=== PATIENT | female | born 1945 | race Caucasian/White ===

== ENCOUNTER → 2017-08-24 | Outpatient (CLI) | payer MEDICARE, OTHER ==
[2017-08-24 16:18] LABS: HEMATOCRIT 30.5 % (36.0-47.0); HEMOGLOBIN 10.7 g/dL (12.0-15.5); HGB HCT DIFFERENCE 1.6; MEAN CORPUSCULAR HEMOGLOBIN 29.4 pg (27.0-33.4); MEAN CORPUSCULAR HGB CONC 35.2 g/dL (32.0-36.0); MEAN CORPUSCULAR VOLUME 84 fl (80-97); RED BLOOD COUNT 3.65 10^6/uL (3.72-5.28); RED CELL DISTRIBUTION WIDTH 13.7 % (11.5-14.0); WHITE BLOOD COUNT 7.9 10^3/uL (4.0-10.5)
[2017-08-24 16:23] LABS: APPEARANCE,URINE CLOUDY; BILIRUBIN,URINE NEGATIVE (NEGATIVE); GLUCOSE, URINE NEGATIVE (NEGATIVE); KETONES,URINE NEGATIVE (NEGATIVE); LEUKOCYTE ESTERASE,URINE MODERATE (NEGATIVE); NITRITE,URINE NEGATIVE (NEGATIVE); PROTEIN,URINE 30 mg/dL (NEGATIVE); UROBILINOGEN,URINE NEGATIVE mg/dL (<2.0)
[2017-08-24 16:32] LABS: ANION GAP 15 (5-19); BLOOD UREA NITROGEN 33 mg/dL (7-20); CALCIUM 9.9 mg/dL (8.4-10.2); CARBON DIOXIDE 22 mmol/L (22-30); CHLORIDE 100 mmol/L (98-107); GLUCOSE 82 mg/dL (75-110); POTASSIUM 5.5 mmol/L (3.6-5.0); SODIUM 136.6 mmol/L (137-145)
[2017-08-24 16:35] LABS: URINE CREATININE 90.3 mg/dL (15-278); URINE PROTEIN 40.7 mg/dL (<12)
== END ==
LOC: OD 14:50
PROVIDERS: ATTEND Physician Assistant Medical
DX: I12.9 Hypertensive chronic kidney disease with stage 1 through stage 4 chronic kidney disease, or unspecified chronic kidney disease (principal); N18.3 Chronic kidney disease, stage 3 (moderate)
CPT/HCPCS: 36415; 80048; 81001; 82570; 84156; 85027

== ENCOUNTER → 2017-08-29 | Outpatient (CLI) | payer MEDICARE, OTHER | LOC: OD 10:27 | PROVIDERS: ATTEND Internal Medicine Nephrology | DX: E87.5 Hyperkalemia (principal) | CPT/HCPCS: 36415; 84132 ==

== ENCOUNTER → 2018-05-22 | Outpatient (CLI) | payer MEDICARE, OTHER ==
[2018-05-22 16:31] LABS: HEMATOCRIT 28.9 % (36.0-47.0); HEMOGLOBIN 10.2 g/dL (12.0-15.5); MEAN CORPUSCULAR HEMOGLOBIN 29.2 pg (27.0-33.4); MEAN CORPUSCULAR HGB CONC 35.3 g/dL (32.0-36.0); MEAN CORPUSCULAR VOLUME 83 fl (80-97); PLATELET COUNT 244 10^3/uL (150-450); RED CELL DISTRIBUTION WIDTH 15.1 % (11.5-14.0); WHITE BLOOD COUNT 6.4 10^3/uL (4.0-10.5)
[2018-05-22 16:52] LABS: ANION GAP 16 (5-19); BLOOD UREA NITROGEN 30 mg/dL (7-20); CALCIUM 9.6 mg/dL (8.4-10.2); CARBON DIOXIDE 20 mmol/L (22-30); CHLORIDE 104 mmol/L (98-107); GLUCOSE 88 mg/dL (75-110); IRON(TIBC) 51.5 ug/dL (37-170); POTASSIUM 4.8 mmol/L (3.6-5.0); SODIUM 140.3 mmol/L (137-145)
== END ==
LOC: OD 15:59
PROVIDERS: ATTEND Internal Medicine Nephrology
DX: I12.9 Hypertensive chronic kidney disease with stage 1 through stage 4 chronic kidney disease, or unspecified chronic kidney disease (principal); N18.3 Chronic kidney disease, stage 3 (moderate); R80.9 Proteinuria, unspecified; D64.9 Anemia, unspecified
CPT/HCPCS: 36415; 80048; 82728; 83540; 83550; 83970; 84100; 84165; 84443; 85027

== ENCOUNTER 2018-06-21 11:01 | Observation (INO) | payer MEDICARE, OTHER ==
--- NOTE | 2018-06-21 11:26 | ER Document Report ---
ED General - General Chief Complaint: Dizziness Stated Complaint: DIZZINESS Time Seen by Provider: 06/21/18 11:25 Notes: 72-year-old female to emergency department for evaluation of not feeling well. Apparently she was altered according to neighbors. Patient denies any symptoms. States she just does not feel like eating. Has a history of brain cancer. That was approximately 5 years ago. Denies any headache, chest pain, shortness of breath. Just does not feel like she has any energy. Does not really want to be here. Thinks that the neighbor is "crazy". TRAVEL OUTSIDE OF THE [place] IN LAST 30 DAYS: No - Related Data Allergies/Adverse Reactions: ibuprofen [Ibuprofen] Allergy (Mild, Verified 07/04/17 18:44) Past Medical History - General Information source: Patient - Social History Smoking Status: Current Some Day Smoker Frequency of alcohol use: None Drug Abuse: None Lives with: Alone Family History: Reviewed & Not Pertinent - Past Medical History Cardiac Medical History: Reports: Hx Heart Attack, Hx Hypercholesterolemia Endocrine Medical History: Reports: Hx Diabetes Mellitus Type 2 Renal/ Medical History: Denies: Hx Peritoneal Dialysis - Immunizations Hx Diphtheria, Pertussis, Tetanus Vaccination: Yes Review of Systems - Review of Systems Notes: Constitutional: denies: Chills, Diaphoresis, Fever, Malaise, Weakness EENT: denies: Eye discharge, Blurred vision, Tearing, Double vision, Nose congestion, Nose discharge, Throat swelling, Mouth pain Cardiovascular: denies: Palpitations, Heart racing, Orthopnea, Dyspnea, Chest pain Respiratory: denies: Cough, Hurts to breathe, Wheezing, Shortness of breath Gastrointestinal: denies: Abdominal pain, Diarrhea, Nausea, Vomiting, Black stools, bright red blood in stool Genitourinary: denies: Burning, Dysuria, Discharge, Frequency, Flank pain, Hematuria Musculoskeletal: denies: Joint pain, Joint swelling, Muscle pain, Muscle stiffness, back pain Hematologic/Lymphatic: denies: Anemia, Easy bleeding, Easy bruising, Blood clots Neurological/Psychological: denies: Confusion, Dementia, Depression, Loss of consciousness Skin: No lesions, no masses, no skin breakdown, no abscesses Physical Exam - Vital signs Vitals: Temp Pulse Ox 98.3 F 98 06/21/18 11:07 06/21/18 11:07 Interpretation: Normal - General General appearance: Appears well, Alert - HEENT Head: Normocephalic, Atraumatic Eyes: Normal Pupils: PERRL - Respiratory Respiratory status: No respiratory distress Chest status: Nontender Breath sounds: Normal Chest palpation: Normal - Cardiovascular Rhythm: Regular Heart sounds: Normal auscultation Murmur: No - Abdominal Inspection: Normal Distension: No distension Bowel sounds: Normal Tenderness: Nontender Organomegaly: No organomegaly - Back Back: Normal, Nontender - Extremities General upper extremity: Normal inspection, Nontender, Normal color, Normal ROM , Normal temperature General lower extremity: Normal inspection, Nontender, Normal color, Normal ROM , Normal temperature, Normal weight bearing. No: Meka's sign - Neurological Neuro grossly intact: Yes Cognition: Normal Orientation: AAOx4 [place] Coma Scale Eye Opening: Spontaneous [place] Coma Scale Verbal: Oriented [place] Coma Scale Motor: Obeys Commands [place] Coma Scale Total: 15 Speech: Normal Motor strength normal: LUE, RUE, LLE, RLE Sensory: Normal - Psychological Associated symptoms: Normal affect, Normal mood - Skin Skin Temperature: Warm Skin Moisture: Dry Skin Color: Normal Course - Vital Signs Vital signs: Temp Pulse Resp BP Pulse Ox 98.3 F 68 16 151/93 H 98 06/21/18 11:07 06/21/18 12:00 06/21/18 12:00 06/21/18 12:00 06/21/18 12:00 06/21/18 13:27 Laboratory 06/21/18 06/21/18 06/21/18 11:10 11:10 11:10 WBC 8.0 RBC 4.04 Hgb 11.6 L Hct 33.1 L MCV 82 MCH 28.6 MCHC 34.9 RDW 14.8 H Plt Count 300 Seg Neutrophils % 76.5 Lymphocytes % 12.0 L Monocytes % 9.1 Eosinophils % 1.6 Basophils % 0.8 Absolute Neutrophils 6.1 Absolute Lymphocytes 1.0 Absolute Monocytes 0.7 Absolute Eosinophils 0.1 Absolute Basophils 0.1 Sodium 126.7 L Potassium 4.5 Chloride 92 L Carbon Dioxide 22 Anion Gap 13 BUN 37 H Creatinine 2.36 H Est GFR ( Amer) 25 L Est GFR (Non-Af Amer) 20 L Glucose 101 Calcium 9.3 Total Bilirubin 0.4 Direct Bilirubin 0.3 Neonat Total Bilirubin Not Reportable Neonat Direct Bilirubin Not Reportable Neonat Indirect Bili Not Reportable AST 40 H ALT 9 Alkaline Phosphatase 61 Creatine Kinase 41 CK-MB (CK-2) 0.69 Troponin I 0.034 Total Protein 7.[address] 06/21/18 11:26 IMPRESSION: No acute findings EVIDENCE OF ACUTE STROKE: NO. Patient has hyponatremia with a sodium count of 126. Slightly altered. At this time feel uncomfortable discharging. Giving fluid at this time. Will have hospitalist admit. - Laboratory Result Diagrams: 06/21/18 11:10 06/21/18 11:10 Laboratory results interpreted by me: 06/21/18 06/21/18 11:10 11:10 Hgb 11.6 L Hct 33.1 L RDW 14.8 H Lymphocytes % 12.0 L Sodium 126.7 L Chloride 92 L BUN 37 H Creatinine 2.36 H Est GFR ( Amer) 25 L Est GFR (Non-Af Amer) 20 L AST 40 H - EKG Interpretation by Me EKG shows normal: Sinus rhythm, [place], Intervals, QRS Complexes. abnormal: ST-T Waves - Has biphasic T-wave in lead V2 and has inverted T-wave in aVL Discharge - Discharge Clinical Impression: Hyponatremia Chronic renal failure Qualifiers: Chronic kidney disease stage: unspecified stage Qualified Code(s): N18.9 - Chronic kidney disease, unspecified Condition: Good Disposition: ADMITTED OBSERVATION Admitting Provider: Dea Knowles Unit Admitted: Telemetry Referrals: Khalif KEYES MD [ACTIVE STAFF] - Follow up as needed
[2018-06-21 11:46] LABS: ABSOLUTE BASOPHILS # (AUTO) 0.1 10^3/uL (0.0-0.2); ABSOLUTE EOSINOPHILS # (AUTO) 0.1 10^3/uL (0.0-0.6); ABSOLUTE MONOCYTES (AUTO) 0.7 10^3/uL (0.1-1.4); ABSOLUTE NEUT (AUTO) 6.1 10^3/uL (1.7-8.2); BASOPHILS % (AUTO) 0.8 % (0-2); EOSINOPHILS % (AUTO) 1.6 % (0-6); HEMATOCRIT 33.1 % (36.0-47.0); HEMOGLOBIN 11.6 g/dL (12.0-15.5); MEAN CORPUSCULAR HEMOGLOBIN 28.6 pg (27.0-33.4); MEAN CORPUSCULAR HGB CONC 34.9 g/dL (32.0-36.0); MEAN CORPUSCULAR VOLUME 82 fl (80-97); MONOCYTES % (AUTO) 9.1 % (3-13); PLATELET COUNT 300 10^3/uL (150-450); RED BLOOD COUNT 4.04 10^6/uL (3.72-5.28); RED CELL DISTRIBUTION WIDTH 14.8 % (11.5-14.0); SEGMENTED NEUTROPHILS % (AUTO) 76.5 % (42-78); TOTAL CELLS COUNTED % (AUTO) 100 %
[2018-06-21 12:07] LABS: ALANINE AMINOTRANSFERASE 9 U/L (9-52); ALBUMIN 3.8 g/dL (3.5-5.0); ALKALINE PHOSPHATASE 61 U/L (38-126); ANION GAP 13 (5-19); ASPARTATE AMINO TRANSFERASE 40 U/L (14-36); BILIRUBIN,DIRECT 0.3 mg/dL (0.0-0.4); BILIRUBIN,TOTAL 0.4 mg/dL (0.2-1.3); BLOOD UREA NITROGEN 37 mg/dL (7-20); CALCIUM 9.3 mg/dL (8.4-10.2); CARBON DIOXIDE 22 mmol/L (22-30); CHLORIDE 92 mmol/L (98-107); CREATINE KINASE 41 U/L (30-135); GLUCOSE 101 mg/dL (75-110); POTASSIUM 4.5 mmol/L (3.6-5.0); SODIUM 126.7 mmol/L (137-145); TOTAL PROTEIN 7.2 g/dL (6.3-8.2)
--- NOTE | 2018-06-21 12:16 | RADIOLOGY REPORT (SQ) ---
EXAM DESCRIPTION: CT HEAD WITHOUT COMPLETED DATE/TIME: 06/21/2018 11:41 am REASON FOR STUDY: altered mental status COMPARISON: CT brain 07/04/2017, 08/26/2012 TECHNIQUE: Axial images acquired through the brain without intravenous contrast. Images reviewed wi th bone, brain and subdural windows. Additional sagittal and coronal reconstructions were generated. Images stored on PACS. All CT scanners at this facility use dose modulation, iterative reconstruction, and/or weight based d osing when appropriate to reduce radiation dose to as low as reasonably achievable (ALARA). [facility]: Dose Right [facility]: CareDose [facility]: Dose Right [facility]: Teradose 4D [facility]: [facility] RADIATION DOSE: CT Rad equipment meets quality standard of care and radiation dose reduction techniq ues were employed. CTDIvol: 53.2 mGy. DLP: 1017 mGy-cm. mGy. LIMITATIONS: None. FINDINGS: VENTRICLES: Normal size and contour. CEREBRUM: No CT evidence of acute large territory ischemic change, acute intracranial hemorrhage, mas s effect, or midline shift. Minimal age-appropriate small vessel ischemic change in the bifrontal and biparietal regions. CEREBELLUM: No masses. No hemorrhage. No alteration of density. No evidence for acute infarction. EXTRAAXIAL SPACES: No fluid collections. No masses. ORBITS AND GLOBE: No intra- or extraconal masses. Normal contour of globe without masses. CALVARIUM: No fracture. PARANASAL SINUSES: No fluid or mucosal thickening. SOFT TISSUES: No mass or hematoma. OTHER: No other significant finding. IMPRESSION: No acute findings EVIDENCE OF ACUTE STROKE: NO. COMMENT: Quality ID # [id number]: Final reports with documentation of one or more dose reduction techniques (e.g., Automated exposure control, adjustment of the mA and/or kV according to patient size, use of iterative reconstruction technique) TECHNICAL DOCUMENTATION: JOB ID: [id number] [employer]- All Rights Reserved Reading location - IP/workstation name: [email or web address]
[2018-06-21 12:32] LABS: CREATINE KINASE MB 0.69 ng/mL (<4.55)
[2018-06-21 12:34] LABS: TROPONIN I 0.034 ng/mL
--- NOTE | 2018-06-21 12:40 | EKG REPORT ---
SEVERITY:- ABNORMAL ECG - SINUS RHYTHM ABNORMAL T, CONSIDER ISCHEMIA, LATERAL LEADS BORDERLINE PROLONGED QT INTERVAL : Confirmed by: Brannon Cook MD 21-Jun-2018 12:39:15
[2018-06-21] MEDS ORDERED: NORMAL SALINE 1000 ML 1,000 ML IV ONE (13:00)
[2018-06-21] MEDS ORDERED: AMLODIPINE BESYLATE 5 MG TABLET PO SCH ×2 (14:30→17:12)
--- NOTE | 2018-06-21 14:38 | PDOC H&P ---
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 History is obtained from the patient and the family. Per patient's son, patient was noted to be confused in the past 2 days. She lives alone. When the son checked on her the other day and yesterday, he noticed that the patient has been more confused and was not making sense. Patient denies any fever or chills. No headache or dizziness. She does say she has been having poor oral intake because her mother has been chronically dry. Denies weight loss. She does say she has been having loose nonbloody stools in the past 3 days. She denies abdominal pain. No chest pain or shortness of breath. No nausea vomiting. Patient lives alone and reportedly is able to take care of herself. Reviewed her medication bottles. It appears that she is on hydrochlorothiazide, amlodipine, metoprolol, gabapentin, sertraline and atorvastatin. Patient says that she does not take some of them but she is not sure which she is taking consistently. Past Medical History Cardiac Medical History: Reports: Myocardial Infarction, Hyperlipidema Endocrine Medical History: Reports: Diabetes Mellitus Type 2 Social History Lives with: Alone Smoking Status: Current Some Day Smoker Family History Family History: Reviewed & Not Pertinent Parental Family History Reviewed: Yes - no hx of cancer Children Family History Reviewed: No Sibling(s) Family History Reviewed.: No Medication/Allergy Home Medications: Paroxetine HCl [Paxil 20 mg Tablet] 40 mg PO DAILY 11/14/12 Allergies/Adverse Reactions: ibuprofen [Ibuprofen] Allergy (Mild, Verified 07/04/17 18:44) Review of Systems All systems: reviewed and no additional remarkable complaints except as stated - As mentioned in HPI Physical Exam Vital Signs: Temp Pulse Resp BP Pulse Ox 98.3 F 68 16 151/93 H 98 06/21/18 11:07 06/21/18 12:00 06/21/18 12:00 06/21/18 12:00 06/21/18 12:00 General appearance: PRESENT: no acute distress, well-developed, well-nourished Head exam: PRESENT: atraumatic, normocephalic Eye exam: PRESENT: conjunctiva pink, EOMI, PERRLA. ABSENT: scleral icterus Neck exam: ABSENT: carotid bruit, JVD, lymphadenopathy, thyromegaly Respiratory exam: PRESENT: clear to auscultation deepak. ABSENT: rales, rhonchi, wheezes Cardiovascular exam: PRESENT: RRR. ABSENT: rubs Pulses: PRESENT: normal dorsalis pedis pul Vascular exam: PRESENT: normal capillary refill GI/Abdominal exam: PRESENT: normal bowel sounds, soft. ABSENT: distended, guarding, mass, organolmegaly, rebound, tenderness Rectal exam: PRESENT: deferred Extremities exam: PRESENT: full ROM. ABSENT: calf tenderness, clubbing, pedal edema Neurological exam: PRESENT: alert, awake, oriented to person, oriented to place , oriented to time, oriented to situation, CN II-XII grossly intact. ABSENT: motor sensory deficit Results Impressions: Head CT 06/21/18 11:26 IMPRESSION: No acute findings EVIDENCE OF ACUTE STROKE: NO. Assessment & Plan - Diagnosis (1) Hyponatremia Is this a current diagnosis for this admission?: Yes Plan: Patient is presenting with acute hyponatremia. Differential diagnosis includes hydrochlorothiazide induced versus dehydration. Patient is also taking SSRI which can also cause hyponatremia. Will check urine and serum osm and urine Na and crea further evaluation. Will continue IV fluids and see if that will correct the hyponatremia. Will repeat sodium later today. (2) Hypertension Is this a current diagnosis for this admission?: Yes Plan: Hold hydrochlorothiazide and metoprolol for now. We will resume amlodipine and continue to monitor patient's blood pressures. (3) CKD (chronic kidney disease) stage 4, GFR 15-29 ml/min Is this a current diagnosis for this admission?: Yes Plan: Patient appears to have CKD 4 based on previous labs. She says she does not see a vp talent management and is unsure why she has chronic kidney disease. Aside from chronic hypertension patient does not have history of diabetes mellitus or comorbidities. (4) Hyperlipidemia Is this a current diagnosis for this admission?: Yes Plan: Continue atorvastatin. - Time Time Spent: 30 to 50 Minutes
[2018-06-21 15:24] LABS: APPEARANCE,URINE CLEAR; BILIRUBIN,URINE NEGATIVE (NEGATIVE); COLOR,URINE STRAW; GLUCOSE, URINE NEGATIVE (NEGATIVE); KETONES,URINE NEGATIVE (NEGATIVE); LEUKOCYTE ESTERASE,URINE SMALL (NEGATIVE); NITRITE,URINE NEGATIVE (NEGATIVE); PROTEIN,URINE 100 mg/dL (NEGATIVE); URINE SPECIFIC GRAVITY 1.004; UROBILINOGEN,URINE NEGATIVE mg/dL (<2.0)
--- NOTE | 2018-06-21 15:33 | RADIOLOGY REPORT (SQ) ---
EXAM DESCRIPTION: CHEST SINGLE VIEW COMPLETED DATE/TIME: 06/21/2018 3:08 pm REASON FOR STUDY: hyponatremia COMPARISON: CHEST FILMS 04/16/2013, 11/14/2012, 06/10/2009 EXAM PARAMETERS: NUMBER OF VIEWS: One view. TECHNIQUE: Single frontal radiographic view of the chest acquired. RADIATION DOSE: NA LIMITATIONS: None. FINDINGS: LUNGS AND PLEURA: No opacities, masses or pneumothorax. No pleural effusion. MEDIASTINUM AND HILAR STRUCTURES: No masses. Contour normal. HEART AND VASCULAR STRUCTURES: Heart normal in size. Normal vasculature. BONES: No acute findings. HARDWARE: None in the chest. OTHER: No other significant finding. IMPRESSION: NO ACUTE RADIOGRAPHIC FINDING IN THE CHEST. TECHNICAL DOCUMENTATION: JOB ID: [id number] [employer]- All Rights Reserved Reading location - IP/workstation name: [email or web address]
[2018-06-21] MEDS: NORMAL SALINE 1000 ML 1,000 ML IV PRN (15:36)
[2018-06-21 15:45] LABS: URINE CREATININE 16.9 mg/dL (15-278)
[2018-06-21] MEDS ORDERED: HYDRALAZINE HCL INJ/PF 20 MG/1 ML SDV IV PRN (17:08)
[2018-06-21] MEDS ORDERED: AMLODIPINE BESYLATE 5 MG TABLET PO ONE (17:11)
[2018-06-21 21:13] LABS: ANION GAP 16 (5-19); BLOOD UREA NITROGEN 32 mg/dL (7-20); CALCIUM 9.3 mg/dL (8.4-10.2); CARBON DIOXIDE 22 mmol/L (22-30); CHLORIDE 94 mmol/L (98-107); GLUCOSE 101 mg/dL (75-110); POTASSIUM 4.2 mmol/L (3.6-5.0); SODIUM 132.1 mmol/L (137-145)
[2018-06-22] MEDS: NORMAL SALINE 1000 ML 1,000 ML IV PRN (05:43)
[2018-06-22 07:22] LABS: ANION GAP 12 (5-19); BLOOD UREA NITROGEN 32 mg/dL (7-20); CARBON DIOXIDE 23 mmol/L (22-30); CHLORIDE 98 mmol/L (98-107); GLUCOSE 86 mg/dL (75-110); POTASSIUM 4.2 mmol/L (3.6-5.0); SODIUM 133.2 mmol/L (137-145)
--- NOTE | 2018-06-22 11:16 | PDOC DISCHARGE SUMMARY ---
General - Admit/Disc Date/PCP Admission Date/Primary Care Provider: 06/21/18 13:43 HUSAM SCOTT PA-C Discharge Date: 06/22/18 - Discharge Diagnosis (1) Hyponatremia Is this a current diagnosis for this admission?: Yes (2) Hypertension Is this a current diagnosis for this admission?: Yes (3) CKD (chronic kidney disease) stage 4, GFR 15-29 ml/min Is this a current diagnosis for this admission?: Yes (4) Hyperlipidemia Is this a current diagnosis for this admission?: Yes - Additional Information Resuscitation Status: Full Code Prescriptions: Amlodipine Besylate [Norvasc 5 mg Tablet] 10 mg PO DAILY 30 Days #30 tablet Lisinopril 10 mg PO DAILY 30 Days #30 tablet Home Medications: Bupropion HCl [Wellbutrin 75 mg Tablet] 75 mg PO DAILY 06/21/18 Ferric Citrate [Auryxia] 210 mg PO Q12 06/21/18 Gabapentin [Neurontin 100 mg Capsule] 100 mg PO Q12 06/21/18 Multivit-Min/Iron/Folic/Lutein [Centrum Silver Women Tablet] 1 each PO DAILY Ropinirole HCl [Requip 0.25 mg Tablet] 0.25 mg PO QHS 06/21/18 Sertraline HCl [Zoloft 50 mg Tablet] 50 mg PO DAILY 06/21/18 Amlodipine Besylate [Norvasc 5 mg Tablet] 10 mg PO DAILY 30 Days #30 tablet Lisinopril 10 mg PO DAILY 30 Days #30 tablet 06/22/18 History of Present Illness History of Present Illness: RAMY RASCON is a 72 year old female with a past medical history of hypertension, 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 History is obtained from the patient and the family. Per patient's son, patient was noted to be confused in the past 2 days. She lives alone. When the son checked on her the other day and yesterday, he noticed that the patient has been more confused and was not making sense. Patient denies any fever or chills. No headache or dizziness. She does say she has been having poor oral intake because her mother has been chronically dry. Denies weight loss. She does say she has been having loose nonbloody stools in the past 3 days. She denies abdominal pain. No chest pain or shortness of breath. No nausea vomiting. Patient lives alone and reportedly is able to take care of herself. Reviewed her medication bottles. It appears that she is on hydrochlorothiazide, amlodipine, metoprolol, gabapentin, sertraline and atorvastatin. Patient says that she does not take some of them but she is not sure which she is taking consistently. Hospital Course Hospital Course: This is a 72-year-old female who was admitted for confusion. Upon admission, patient's confusion has resolved but she was noted to have a sodium of 126. Patient was given IV fluids in the ER. She did report of poor oral intake in the past few days. Serum and urine osmolarity and urine sodium were done for hyponatremia workup. Noted that the patient already received a normal saline bolus prior to testing. However her hyponatremia is severely resoled with IV fluid. Her hyponatremia is likely from a combination of dehydration and hydrochlorothiazide induced hyponatremia. Her blood pressure is in the hospital trended up but this was controlled with amlodipine 10 mg daily and as needed hydralazine. She takes metoprolol, hydralazine and lisinopril at home. She is not sure which she is consistently taking at home. Patient also has excessive supply of gabapentin, Flexeril. She is also on sertraline. Addressed polypharmacy. Adjusted patient's regimen and she will be sent home on a higher dose of amlodipine 10 mg daily and lisinopril 10 mg daily. Will discontinue metoprolol for now. She will continue to follow-up with her PCP for titration of her antihypertensives depending on her subsequent blood pressures. Hydrochlorothiazide will also be discontinued. She can continue gabapentiun 100 mg bid prn. She says she will get rid of the 2 extra bottles of neurontin. On day of discharge, patient is awake and coherent and oriented 3. Physical Exam Vital Signs: Temp Pulse Resp BP Pulse Ox 98.1 F 71 18 147/80 H 100 06/22/18 07:44 06/22/18 07:44 06/22/18 07:44 06/22/18 07:44 06/22/18 07:44 Intake & Output 06/21/18 06/22/18 06/23/18 06:59 06:59 06:59 Intake Total 2100 Balance 2100 Weight 145 lb 11.609 oz General appearance: PRESENT: no acute distress, well-developed, well-nourished Eye exam: PRESENT: conjunctiva pink, EOMI, PERRLA. ABSENT: scleral icterus Mouth exam: PRESENT: moist, tongue midline Neck exam: ABSENT: carotid bruit, JVD, lymphadenopathy, thyromegaly Respiratory exam: PRESENT: clear to auscultation deepak. ABSENT: rales, rhonchi, wheezes Pulses: PRESENT: normal dorsalis pedis pul GI/Abdominal exam: PRESENT: normal bowel sounds, soft. ABSENT: distended, guarding, mass, organolmegaly, rebound, tenderness Rectal exam: PRESENT: deferred Extremities exam: PRESENT: full ROM. ABSENT: calf tenderness, clubbing, pedal edema Neurological exam: PRESENT: alert, awake, oriented to person, oriented to place , oriented to time, oriented to situation, CN II-XII grossly intact. ABSENT: motor sensory deficit Results Laboratory Results: 06/22/18 05:57 06/21/18 06/21/18 06/21/18 15:00 15:00 15:00 Sodium Potassium Chloride Carbon Dioxide Anion Gap BUN Creatinine Est GFR ( Amer) Est GFR (Non-Af Amer) Glucose Serum Osmolality 273 L Calcium Urine Color STRAW Urine Appearance CLEAR Urine pH 7.0 Ur Specific [place] 1.004 Urine Protein 100 H Urine Glucose (UA) NEGATIVE Urine Ketones NEGATIVE Urine Blood SMALL H Urine Nitrite NEGATIVE Ur Leukocyte Esterase SMALL H Urine WBC (Auto) 7 Urine Osmolality 212 L 06/21/18 06/21/18 06/22/18 19:50 20:44 05:57 Sodium Cancelled 132.1 L 133.2 L Potassium Cancelled 4.2 4.2 Chloride Cancelled 94 L 98 Carbon Dioxide Cancelled 22 23 Anion Gap Cancelled 16 12 BUN Cancelled 32 H 32 H Creatinine Cancelled 2.06 H 1.99 H Est GFR ( Amer) Cancelled 29 L 30 L Est GFR (Non-Af Amer) Cancelled 24 L 25 L Glucose Cancelled 101 86 Serum Osmolality Calcium Cancelled 9.3 9.0 Urine Color Urine Appearance Urine pH Ur Specific [place] Urine Protein Urine Glucose (UA) Urine Ketones Urine Blood Urine Nitrite Ur Leukocyte Esterase Urine WBC (Auto) Urine Osmolality Impressions: Chest X-Ray 06/21/18 00:00 IMPRESSION: NO ACUTE RADIOGRAPHIC FINDING IN THE CHEST. Head CT 06/21/18 11:26 IMPRESSION: No acute findings EVIDENCE OF ACUTE STROKE: NO. Qualifiers - * PATIENT BEING DISCHARGED WITH ANY OF THE FOLLOWING DIAGNOSIS: No
[2018-06-22 12:54] VITALS: BP 153/83
== END 2018-06-22 13:26 | disposition home health service (06) ==
LOC: ER 11:01 → EH 13:43 → 4S 22:43
PROVIDERS: ADMIT Internal Medicine; ATTEND Internal Medicine
DX: E87.1 Hypo-osmolality and hyponatremia (principal); I12.9 Hypertensive chronic kidney disease with stage 1 through stage 4 chronic kidney disease, or unspecified chronic kidney disease; N18.4 Chronic kidney disease, stage 4 (severe); E78.5 Hyperlipidemia, unspecified; F17.200 Nicotine dependence, unspecified, uncomplicated; R94.31 Abnormal electrocardiogram [ECG] [EKG]; I25.2 Old myocardial infarction; Z60.2 Problems related to living alone; Z79.899 Other long term (current) drug therapy; Z85.89 Personal history of malignant neoplasm of other organs and systems; Z92.21 Personal history of antineoplastic chemotherapy; Z92.3 Personal history of irradiation
CPT/HCPCS: 93005; 99285; 96361; 96374; 36415 ×2; 82553; 82550; 83930; 84443; 82570; 83935; 84300; 85025; 80048 ×2; 80053; 81001; 84484; 71045; 70450; 93010; G0378 ×3; J0360; A9270 ×2; J7030 ×2

== ENCOUNTER 2018-07-11 22:01 | Emergency (ER) | payer MEDICARE, OTHER ==
--- NOTE | 2018-07-11 22:29 | RADIOLOGY REPORT (SQ) ---
PROCEDURE: CT OF THE HEAD WITHOUT INTRAVENOUS CONTRAST HISTORY: stroke alert Indication: Same as above Comparison: 07/04/2017 Technique: CT of the head was done without intravenous contrast was done in the orthogonal planes. This exam was performed according to our departmental dose-optimization program, which includes automated exposure control, adjustment of the mA and/or KV according to the patient's size and/or use of iterative reconstruction technique. FINDINGS: There is no midline shift mass effect or acute focal infarct. 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 There is no supratentorial no transtentorial herniation There is prominence of the sylvian fissures and the cortical sulci reflecting age related volume loss. There is periventricular and deep white matter low attenuation, most likely related to small vessel white matter ischemic disease. If clinical concern exists regarding an acute ischemic/vascular pathology being responsible for patient's symptomatology, an MRI of the brain is more sensitive than the current study, in ruling out such a possibility. There is good triplett/white matter differentiation. The ventricular system is normal. The mastoid air cells are unremarkable . The paranasal sinuses are unremarkable . There is no visualization of acute fractures involving the calvarium or the skull base. The findings were discussed with Dr. 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
--- NOTE | 2018-07-11 22:47 | RADIOLOGY REPORT (SQ) ---
EXAM DESCRIPTION: XR CHEST 1 VIEW COMPLETED DATE/TME: 07/11/2018 22:03 CLINICAL HISTORY: 72 years Female, stroke alert COMPARISON: None. NUMBER OF VIEWS/TECHNIQUE: 1/AP FINDINGS: Adequate lung volume, clear parenchyma, normal cardiac silhouette, atherosclerosis, and intact bony thorax. Calcification of contrast artifact at the left lateral thorax. IMPRESSION: No acute cardiopulmonary findings.
--- NOTE | 2018-07-11 22:57 | RADIOLOGY REPORT (SQ) ---
EXAM DESCRIPTION: CT NECK ANGIOGRAPHY WITHOUT THEN WITH IV CONTRAST COMPLETED DATE/TME: 07/11/2018 00:00 CLINICAL HISTORY: 72 years Female, STROKE SX Comparison: CT, head, same day Technique: IV contrast. Coronal and sagittal reformat not available. 3d reconstruction. This exam was performed according to our departmental dose-optimization program, which includes automated exposure control, adjustment of the mA and/or kV according to patient size and/or use of iterative reconstruction technique. [facility]: Dose Right [facility]: CareDose [facility]: Dose Right [facility]: Teradose 4D [facility]: [employer] LIMITATIONS: None Findings: CTA, head: Intact [place]. No aneurysm. No occlusion. No vasculitides. Atherosclerosis includes scattered plaque. CTA, neck: 50% focal diameter stenosis of the proximal left vertebral artery due to kinking, image 34 series 3. Intact carotid and right vertebral arterial system. No internal carotid arterial stenosis/occlusion based on NASCET (or similar) criteria. Atherosclerosis includes scattered plaque. Other: Abnormal CT of the brain reported separately. No enhancement abnormality of the brain. Impression: 50% focal diameter stenosis of the proximal left vertebral artery due to kinking, image 34 series 3. No acute CTA findings of the head or neck.
[2018-07-11 23:00] LABS: INTERNATIONAL RATION (INR) 0.98
[2018-07-11 23:01] LABS: PARTIAL THROMBOPLASTIN TIME 28.6 SEC (23.5-35.8)
[2018-07-11 23:04] LABS: ABSOLUTE BASOPHILS # (AUTO) 0.1 10^3/uL (0.0-0.2); ABSOLUTE EOSINOPHILS # (AUTO) 0.2 10^3/uL (0.0-0.6); ABSOLUTE MONOCYTES (AUTO) 0.6 10^3/uL (0.1-1.4); HEMOGLOBIN 9.6 g/dL (12.0-15.5); MONOCYTES % (AUTO) 7.9 % (3-13); PLATELET COUNT 217 10^3/uL (150-450); TOTAL CELLS COUNTED % (AUTO) 100 %
[2018-07-11 23:08] LABS: PROTHROMBIN TIME 13.5 SEC (11.4-15.4)
[2018-07-11 23:09] LABS: ABSOLUTE LYMPHOCYTES (AUTO) 0.8 10^3/uL (0.5-4.7); ABSOLUTE NEUT (AUTO) 6.1 10^3/uL (1.7-8.2); BASOPHILS % (AUTO) 1.3 % (0-2); EOSINOPHILS % (AUTO) 2.3 % (0-6); HEMATOCRIT 28.3 % (36.0-47.0); LYMPHOCYTES % (AUTO) 10.7 % (13-45); MEAN CORPUSCULAR VOLUME 85 fl (80-97); RED BLOOD COUNT 3.32 10^6/uL (3.72-5.28); RED CELL DISTRIBUTION WIDTH 15.5 % (11.5-14.0); SEGMENTED NEUTROPHILS % (AUTO) 77.8 % (42-78); WHITE BLOOD COUNT 7.9 10^3/uL (4.0-10.5)
[2018-07-11] MEDS ORDERED: NICARDIPINE HCL RTU, ISO-OS 20 MG/200 ML RTUINJ IV PRN (23:10)
--- NOTE | 2018-07-11 23:21 | ER Document Report ---
ED General - General Chief Complaint: Weakness Stated Complaint: WEAKNESS Time Seen by Provider: 07/11/18 22:18 TRAVEL OUTSIDE OF THE [place] IN LAST 30 DAYS: No - HPI Notes: Patient is a 72-year-old female that presents to the emergency department for chief complaint of left arm and leg weakness. Patient presents emergency room complaining of left arm and leg weakness. Her symptoms started at 1030 this morning. She also states she feels she is slurring her speech. Her symptoms are unchanged since onset. She denies any aggravating or relieving factors. She denies history of stroke, head injury or intracranial hemorrhage in the past. She denies any anticoagulation. EMS states she had a difficult time ambulating because her leg seemed weak. Past Medical History: Hypertension, hyperlipidemia Past Surgical History: Denies Social History: Daily tobacco, denies alcohol and drug use Family History: Reviewed and noncontributory for presenting illness Allergies: Reviewed, see documented allergy list. REVIEW OF SYSTEMS: CONSTITUTIONAL : No fever No chills No diaphoresis No recent illness EENT: No vision changes No congestion No sore throat CARDIOVASCULAR: No chest pain No palpitations No shortness of breath RESPIRATORY: No shortness of breath No cough No difficulty breathing GASTROINTESTINAL: No abdominal pain No nausea No vomiting No diarrhea GENITOURINARY: No dysuria No hematuria No difficulty urinating MUSCULOSKELETAL: No back pain No leg pain No arm pain SKIN: No rashes No lesions LYMPHATIC: No swollen, enlarged glands. NEUROLOGICAL: No lightheadedness No headache No left arm and leg weakness No paresthesias Slurred speech PSYCHIATRIC: No anxiety No depression PHYSICAL EXAMINATION: Vital signs reviewed, nursing noted reviewed. GENERAL: Well-appearing, well-nourished and in no acute distress. HEAD: Atraumatic, normocephalic. EYES: Eyes appear normal, extraocular movements intact, sclera anicteric, conjunctiva are normal. ENT: nares patent, oropharynx clear without exudates. Moist mucous membranes. NECK: Normal range of motion, supple without lymphadenopathy LUNGS: Breath sounds clear to auscultation bilaterally and equal. No wheezes rales or rhonchi. HEART: Regular rate and rhythm without murmurs ABDOMEN: Soft, nontender, normoactive bowel sounds. No rebound, guarding, or rigidity. No masses appreciated. EXTREMITIES: Nontender, good range of motion, no pitting or edema. NEUROLOGICAL: NIH at 2208=6 (+1 left arm drift, +3 left leg no effort against gravity, +1 dysarthria, +1 right facial palsy). No ataxia. No sensory loss. PSYCH: Normal mood, normal affect. SKIN: Warm, Dry, normal turgor, no rashes or lesions noted on exposed skin - Related Data Allergies/Adverse Reactions: ibuprofen [Ibuprofen] Allergy (Mild, Verified 07/04/17 18:44) Past Medical History - Social History Smoking Status: Current Every Day Smoker Family History: Reviewed & Not Pertinent - Medical History Medical History: Other - Dictated - Past Medical History Cardiac Medical History: Reports: Hx Heart Attack, Hx Hypercholesterolemia, Hx Hypertension Endocrine Medical History: Reports: Hx Diabetes Mellitus Type 2 Renal/ Medical History: Denies: Hx Peritoneal Dialysis - Immunizations Hx Diphtheria, Pertussis, Tetanus Vaccination: Yes Review of Systems - Review of Systems Notes: Dictated Physical Exam - Vital signs Vitals: Pulse Resp BP Pulse Ox 52 L 18 144/78 H 90 L 07/11/18 22:03 07/11/18 22:03 07/11/18 22:03 07/11/18 22:03 Course - Re-evaluation Re-evalutation: 07/11/18 23:21 Patient seen and examined vital signs reviewed. Laboratory data and imaging were ordered as appropriate for the patient's presenting symptoms and complaint, with consideration of any critical or life threatening conditions that may be associated with their obtained history and exam as noted above. Patient was treated with Cardene for hypertension Results were reviewed when available and demonstrated pontine hemorrhage The patient was re-evaluated and was unchanged Evaluation was most consistent with pontine hemorrhage Results were discussed with the patient at this point after careful consideration I feel that that patient should be transferred to [facility] due to intracranial hemorrhage requiring neurosurgery evaluation. Case discussed with physician programs assistant for excepting Dr. Camara. this was discussed with the patient that it is in the best interest for their care to be transferred, the risks and benefits of transfer were discussed, including but not limited to clinical deterioration during transport, respiratory distress, and potential for traumatic injuries. Patient agreed with this plan of care. *Note is created using voice recognition software and may contain spelling, syntax or grammatical errors. 07/11/18 23:23 - Vital Signs Vital signs: Temp Pulse Resp BP Pulse Ox 97.8 F 52 L 17 195/81 H 95 07/11/18 22:04 07/11/18 22:03 07/11/18 23:01 07/11/18 23:01 07/11/18 23:01 - Laboratory Result Diagrams: 07/11/18 22:39 07/11/18 22:39 Laboratory results interpreted by me: 07/11/18 22:39 RBC 3.32 L Hgb 9.6 L Hct 28.3 L RDW 15.5 H Lymphocytes % 10.7 L Critical Care Note - Critical Care Note Total time excluding time spent on procedures (mins): 35 Comments: Critical care time spent obtaining history from patient or surrogate, discussions with consultants, development of treatment plan with patient or surrogate, evaluation of patient's response to treatment, examination of patient , ordering and performing treatments and interventions, ordering and review of laboratory studies, re-evaluation of patient's condition, ordering and review of radiographic studies and review of old charts Discharge - Discharge Clinical Impression: Pontine hemorrhage, Hemorrhagic stroke Condition: Stable Disposition: [facility] Referrals: HUSAM SCOTT PA-C [Primary Care Provider] - Follow up as needed
[2018-07-12 00:43] LABS: ALANINE AMINOTRANSFERASE 26 U/L (9-52); ALBUMIN 4.3 g/dL (3.5-5.0); ALKALINE PHOSPHATASE 88 U/L (38-126); ANION GAP 10 (5-19); ASPARTATE AMINO TRANSFERASE 47 U/L (14-36); BILIRUBIN,DIRECT 0.5 mg/dL (0.0-0.4); BILIRUBIN,TOTAL 0.7 mg/dL (0.2-1.3); BLOOD UREA NITROGEN 31 mg/dL (7-20); CALCIUM 9.6 mg/dL (8.4-10.2); CARBON DIOXIDE 25 mmol/L (22-30); CHLORIDE 100 mmol/L (98-107); GLUCOSE 93 mg/dL (75-110); SODIUM 134.8 mmol/L (137-145); TOTAL PROTEIN 7.5 g/dL (6.3-8.2)
[2018-07-12 01:26] VITALS: BP 171/76
--- NOTE | 2018-07-12 07:41 | EKG REPORT ---
SEVERITY:- ABNORMAL ECG - SINUS RHYTHM TALL R WAVE IN V2, CONSIDER RVH OR PMI NONSPECIFIC ST-T CHANGES LATERAL LEADS : Confirmed by: Brannon Cook MD 12-Jul-2018 07:40:52
--- NOTE | 2018-07-12 08:30 | RADIOLOGY REPORT (SQ) ---
EXAM DESCRIPTION: CTA HEAD COMPLETE DATE/TIME: 07/11/2018 10:28 pm REASON FOR STUDY: STROKE SX FINDINGS: Please see combined report of the CTA neck for performance of procedure and radiologic sup ervision and interpretation. IMPRESSION: Please see combined report of the CTA neck for performance of procedure and radiologic s upervision and interpretation. Reading location - IP/workstation name: [email or web address]
== END 2018-07-12 01:40 | disposition short-term general hospital (02) ==
LOC: ER 22:01
DX: I62.9 Nontraumatic intracranial hemorrhage, unspecified (principal); I10 Essential (primary) hypertension; F17.200 Nicotine dependence, unspecified, uncomplicated
CPT/HCPCS: 93005; 99291; 96365; 36415; 82962; 85025; 85610; 85730; 80053; 84484; 71045; 70450; 70496; 70498; 93010; J3490

== ENCOUNTER 2018-08-05 04:47 | Inpatient (IN) | payer MEDICARE, OTHER ==
--- NOTE | 2018-08-05 05:41 | ER Document Report ---
ED Medical Screen (RME) - General Stated Complaint: FALL/LEG PAIN Time Seen by Provider: 08/05/18 05:10 Mode of Arrival: Ambulatory Information source: Patient Notes: Patient is a 72-year-old female who presents with chief complaint of fall. Patient reports she has fallen multiple times over the last several weeks. Patient complains of left leg pain up near her left hip. Patient was recently transferred to another facility for a brain tumor. Patient denies any complaints other than the left leg/hip pain. Exam: Patient alert and oriented x4 Bruising noted to the left side of patient's face near the advent. Scattered bruises noted on patient's left arm and left hip. I have greeted and performed a rapid initial assessment of this patient. A comprehensive ED assessment and evaluation of the patient, analysis of test results and completion of the medical decision making process will be conducted by additional ED providers. Dictation of this chart was performed using voice recognition software; therefore, there may be some unintended grammatical errors. TRAVEL OUTSIDE OF THE [place] IN LAST 30 DAYS: No - Related Data Allergies/Adverse Reactions: ibuprofen [Ibuprofen] Allergy (Mild, Verified 07/12/18 00:41) Past Medical History - Past Medical History Cardiac Medical History: Reports: Hx Heart Attack, Hx Hypercholesterolemia, Hx Hypertension Endocrine Medical History: Reports: Hx Diabetes Mellitus Type 2 Renal/ Medical History: Denies: Hx Peritoneal Dialysis - Immunizations Hx Diphtheria, Pertussis, Tetanus Vaccination: Yes Doctor's Discharge - Discharge Referrals: HUSAM SCOTT PA-C [Primary Care Provider] - Follow up as needed
--- NOTE | 2018-08-05 05:50 | RADIOLOGY REPORT (SQ) ---
EXAM DESCRIPTION: CT HEAD WITHOUT IV CONTRAST COMPLETED DATE/TME: 08/05/2018 05:19 CLINICAL HISTORY: 72 years, Female, fall COMPARISON: 07/11/2018 TECHNIQUE: Axial CT images of the brain were obtained without contrast. Sagittal and coronal reformats were performed. [facility] 963 Images stored on PACS. All CT scanners at this facility use dose modulation, iterative reconstruction, and/or weight based dosing when appropriate to reduce radiation dose to as low as reasonably achievable (ALARA). [facility]: Dose Right [facility]: CareDose [facility]: Dose Right [facility]: Teradose 4D [facility]: [employer] LIMITATIONS: None. FINDINGS: There is no acute infarct, hemorrhage, mass, edema, hydrocephalus, or extra-axial fluid collection. There is mild diffuse cerebral atrophy with mild periventricular deep white matter chronic microvascular changes. The paranasal sinuses and mastoid air cells are clear. There is no acute fracture IMPRESSION: No acute intracranial abnormality TECHNICAL DOCUMENTATION: Quality ID # 436: Final reports with documentation of one or more dose reduction techniques (e.g., Automated exposure control, adjustment of the mA and/or kV according to patient size, use of iterative reconstruction technique) 2010 [employer]- All Rights Reserved
--- NOTE | 2018-08-05 06:13 | RADIOLOGY REPORT (SQ) ---
EXAM DESCRIPTION: XR HIP 2 OR MORE VIEWS COMPLETED DATE/TME: 08/05/2018 05:20 CLINICAL HISTORY: 72 years Female, left hip pain, thigh pain COMPARISON: None. Findings: Fracture of the left femoral neck with 1.9 cm lateral displacement.. Bones, joints, and soft tissues of the LEFT XR HIP 2 OR MORE VIEWS appear otherwise intact. IMPRESSION: Fracture of the left femoral neck.
[2018-08-05 06:19] LABS: HEMATOCRIT 26.4 % (36.0-47.0); MEAN CORPUSCULAR HEMOGLOBIN 29.1 pg (27.0-33.4); MEAN CORPUSCULAR HGB CONC 34.3 g/dL (32.0-36.0); MEAN CORPUSCULAR VOLUME 85 fl (80-97); PLATELET COUNT 223 10^3/uL (150-450); RED BLOOD COUNT 3.11 10^6/uL (3.72-5.28); RED CELL DISTRIBUTION WIDTH 15.9 % (11.5-14.0); WHITE BLOOD COUNT 16.7 10^3/uL (4.0-10.5)
--- NOTE | 2018-08-05 06:21 | ER Document Report ---
ED Fall - General Mode of Arrival: Ambulatory Information source: Patient TRAVEL OUTSIDE OF THE [place] IN LAST 30 DAYS: No <NICK POLLOCK - Last Filed: 08/05/18 07:38> <RAMIRO RODRIGUEZ - Last Filed: 08/05/18 15:39> - General Chief Complaint: Fall Stated Complaint: FALL/LEG PAIN Time Seen by Provider: 08/05/18 05:10 Notes: 72-year-old female who presents to the emergency department today with complaints of left hip pain. Patient has had frequent falls recently stating that her "legs are weak". Patient states she last had a fall yesterday and has had left leg pain since this fall. Patient's left lower extremity is shortened and externally rotated. Patient has ecchymosis to the left periorbital area, right forehead, and diffusely spread across her extremities. (NICK POLLOCK) - Related data Allergies/Adverse Reactions: ibuprofen [Ibuprofen] Allergy (Mild, Verified 07/12/18 00:41) Past Medical History - General Information source: Patient - Social History Smoking Status: Never Smoker Cigarette use (# per day): No Chew tobacco use (# tins/day): No Frequency of alcohol use: None Drug Abuse: None Lives with: Family Family History: Reviewed & Not Pertinent Patient has suicidal ideation: No Patient has homicidal ideation: No - Past Medical History Cardiac Medical History: Reports: Hx Heart Attack, Hx Hypercholesterolemia, Hx Hypertension Endocrine Medical History: Reports: Hx Diabetes Mellitus Type 2 Surgical Hx: Negative - Immunizations Hx Diphtheria, Pertussis, Tetanus Vaccination: Yes <NICK POLLOCK - Last Filed: 08/05/18 07:38> Review of Systems - Review of Systems Constitutional: No symptoms reported EENT: No symptoms reported Cardiovascular: No symptoms reported Respiratory: No symptoms reported Gastrointestinal: No symptoms reported Genitourinary: No symptoms reported Female Genitourinary: No symptoms reported Musculoskeletal: See HPI, Joint pain - left hip pain Skin: No symptoms reported Hematologic/Lymphatic: No symptoms reported Neurological/Psychological: No symptoms reported -: Yes All other systems reviewed and negative <NICK POLLOCK - Last Filed: 08/05/18 07:38> Physical Exam <NICK POLLOCK - Last Filed: 08/05/18 07:38> <RAMIRO RODRIGUEZ - Last Filed: 08/05/18 15:39> - Vital signs Vitals: Pulse Ox 88 L 08/05/18 04:58 - Notes Notes: Physical Exam: General: Alert, appears uncomfortable. HEENT: Normocephalic. Left periorbital ecchymosis. PERRL. Extraocular movements intact. Oropharynx clear. Neck: Supple. Non-tender. Respiratory: No respiratory distress. Clear and equal breath sounds bilaterally. Cardiovascular: Regular rate and rhythm. Abdominal: Normal Inspection. Non-tender. No distension. Normal Bowel Sounds. Back: Non-tender. No deformity or step off. Extremities: Moves all four extremities. Upper extremities: Ecchymosis. Normal ROM. Lower extremities: Left lower extremity is shortened and externally rotated. Pain with palpation of left hip. Neurological: Normal cognition. AAOx4. Normal speech. Psychological: Normal affect. Normal Mood. Skin: Warm. Dry. Eccymosis across arms/legs. (NICK POLLOCK) Course - Laboratory Result Diagrams: 08/05/18 06:08 08/05/18 06:08 <NICK POLLOCK - Last Filed: 08/05/18 07:38> - Laboratory Result Diagrams: 08/05/18 06:08 08/05/18 13:10 - Diagnostic Test Radiology reviewed: Image reviewed, Reports reviewed - CT scan of the head does not show an acute process. Left hip x-ray shows femoral neck fracture. - EKG Interpretation by Me EKG shows normal: Sinus rhythm, [place], Intervals, QRS Complexes, ST-T Waves Rate: Normal - 79 Rhythm: NSR - Consults Dr. Magallanes Time consulted: 07:20 Consulted provider: will see as inpatient - Request medicine admit the patient Dr. Peterson Time consulted: 07:25 Consulted provider: other - States that Dr. Knowles will see the patient in consult but wants the orthopedic surgeon to admit the patient. This information was relayed to Dr. Magallanes <RAMIRO RODRIGUEZ - Last Filed: 08/05/18 15:39> - Vital Signs Vital signs: Temp Pulse Resp BP Pulse Ox 97.5 F 7 L 123/64 100 08/05/18 09:32 08/05/18 15:01 08/05/18 15:01 08/05/18 15:01 - Laboratory Laboratory results interpreted by me: 10/01/18 10/01/18 10/01/18 06:08 06:08 07:00 WBC 16.7 H RBC 3.11 L Hgb 9.0 L Hct 26.4 L RDW 15.9 H Seg Neuts % (Manual) 95 H Lymphocytes % (Manual) 5 L Monocytes % (Manual) 0 L Abs Neuts (Manual) 15.9 H Abs Monocytes (Manual) 0.0 L Sodium 128.7 L Chloride 95 L BUN 25 H Creatinine 2.25 H Est GFR ( Amer) 26 L Est GFR (Non-Af Amer) 22 L Direct Bilirubin 0.7 H Albumin 3.4 L Urine Osmolality 204 L Discharge <NICK POLLOCK - Last Filed: 08/05/18 07:38> - Discharge Admitting Provider: Hospitalist Unit Admitted: IMCU <RAMIRO RODRIGUEZ - Last Filed: 08/05/18 15:39> - Discharge Clinical Impression: Hyponatremia, CKD (chronic kidney disease) stage 4, GFR 15-29 ml/min Closed left hip fracture Qualifiers: Encounter type: initial encounter Qualified Code(s): S72.002A - Fracture of unspecified part of neck of left femur, initial encounter for closed fracture Condition: Stable Disposition: ADMITTED INPATIENT Scribe Attestation: 08/05/18 09:00 I personally performed the services described in the documentation, reviewed and edited the documentation which was dictated to the scribe in my presence, and it accurately records my words and actions. (RAMIRO RODRIGUEZ) Scribe Documentation - Scribe Written by [employer]:: Rigoberto De La Rosa, 08/05/2018 0743 acting as scribe for :: Jimmy <NICK POLLOCK - Last Filed: 08/05/18 07:38>
[2018-08-05] MEDS ORDERED: MORPHINE SULFATE 10 MG/ML INJ IV ONE ×2 (06:28→09:34)
[2018-08-05] MEDS ORDERED: ONDANSETRON HCL INJ/PF 4 MG/2 ML SDV IV ONE ×2 (06:28→09:34)
[2018-08-05] MEDS ORDERED: NORMAL SALINE 1000 ML 1,000 ML IV ONE (06:29)
[2018-08-05 06:38] LABS: ALANINE AMINOTRANSFERASE 12 U/L (9-52); ALBUMIN 3.4 g/dL (3.5-5.0); ALKALINE PHOSPHATASE 77 U/L (38-126); ANION GAP 10 (5-19); ASPARTATE AMINO TRANSFERASE 20 U/L (14-36); BILIRUBIN,DIRECT 0.7 mg/dL (0.0-0.4); BILIRUBIN,TOTAL 0.8 mg/dL (0.2-1.3); BLOOD UREA NITROGEN 25 mg/dL (7-20); CALCIUM 9.6 mg/dL (8.4-10.2); CARBON DIOXIDE 24 mmol/L (22-30); CHLORIDE 95 mmol/L (98-107); CREATINE KINASE 43 U/L (30-135); GLUCOSE 105 mg/dL (75-110); POTASSIUM 4.8 mmol/L (3.6-5.0); SODIUM 128.7 mmol/L (137-145); TOTAL PROTEIN 6.5 g/dL (6.3-8.2)
[2018-08-05 06:43] LABS: ABSOLUTE LYMPHOCYTES# (MANUAL) 0.8 10^3/uL (0.5-4.7); ABSOLUTE NEUTROPHILS# (MANUAL) 15.9 10^3/uL (1.7-8.2); BASOPHILS % (MANUAL) 0 % (0-2); EOSINOPHILS % (MANUAL) 0 % (0-6); LYMPHOCYTES % (MANUAL) 5 % (13-45); MONOCYTES % (MANUAL) 0 % (3-13); SEGMENTED NEUTROPHILS % (MAN) 95 % (42-78); TOTAL CELLS COUNTED 100
[2018-08-05 06:44] LABS: ANISOCYTOSIS 1+; BURR CELLS 1+; PLATELET COMMENT ADEQUATE; POLYCHROMASIA 1+
[2018-08-05 06:49] LABS: CREATINE KINASE MB 0.6 ng/mL (<4.55); TROPONIN I 0.063 ng/mL
[2018-08-05 07:27] LABS: APPEARANCE,URINE CLOUDY; BILIRUBIN,URINE NEGATIVE (NEGATIVE); COLOR,URINE YELLOW; GLUCOSE, URINE NEGATIVE (NEGATIVE); KETONES,URINE NEGATIVE (NEGATIVE); LEUKOCYTE ESTERASE,URINE NEGATIVE (NEGATIVE); NITRITE,URINE NEGATIVE (NEGATIVE); PROTEIN,URINE NEGATIVE (NEGATIVE); URINE SPECIFIC GRAVITY 1.005; UROBILINOGEN,URINE NEGATIVE mg/dL (<2.0)
--- NOTE | 2018-08-05 07:59 | EKG REPORT ---
SEVERITY:- NORMAL ECG - SINUS RHYTHM : Confirmed by: Thais Gustafson 05-Aug-2018 07:58:01
[2018-08-05] MEDS ORDERED: LORAZEPAM INJ 2 MG/1 ML VIAL IV PRN (11:52)
--- NOTE | 2018-08-05 12:03 | PDOC H&P ---
History of Present Illness Admission Date/PCP: 08/05/18 09:14 HUSAM SCOTT PA-C Patient complains of: fall, left leg weakness History of Present Illness: Ms. 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 Patient was noted to have a left hip fracture in the ER. Hospitalist service was called for admission. Upon encounter, patient reports that she developed leg weakness last night more noticeably on the left leg. She says she fell last night and denies hitting her head and went back to sleep. Around 3 AM this morning, she wok up and went to the bathroom and felt that her left left was still weak. She went to the bathroom and fell again, hit her head and developed pain and tenderness on the left hip. She denies syncope, nausea or vomiting. Initial CT of the head was negative. She had a recent pontine bleed on 07/11/18 and was admitted to [facility] and was subsequently discharged to rehab. She was discharged back home more than a week ago. Past Medical History Cardiac Medical History: Reports: Myocardial Infarction, Hyperlipidema, Hypertension Endocrine Medical History: Reports: Diabetes Mellitus Type 2 Social History Lives with: Family Smoking Status: Never Smoker Drugs: None Family History Family History: Reviewed & Not Pertinent Parental Family History Reviewed: Yes - no premature CAD Children Family History Reviewed: No Sibling(s) Family History Reviewed.: No Medication/Allergy Home Medications: Atorvastatin Calcium [Lipitor 10 mg Tablet] 10 mg PO QHS 08/05/18 Bupropion HCl [Wellbutrin 75 mg Tablet] 75 mg PO DAILY 08/05/18 Cyanocobalamin (Vitamin B-12) [Vitamin B-12 1000 mcg Tablet] 1,000 mcg PO DAILY 08/05/18 Fluoxetine HCl [Prozac 20 mg Capsule] 20 mg PO DAILY 08/05/18 Folic Acid [Folvite 1 mg Tablet] 1 mg PO DAILY 08/05/18 Gabapentin [Neurontin 100 mg Capsule] 100 mg PO BID 08/05/18 Magnesium Oxide [Mag-Ox 400 mg Tablet] 400 mg PO DAILY 08/05/18 Melatonin [Melatonin 3 mg Tablet] 3 mg PO QHS 08/05/18 [place]-3 Fatty Acids/Fish Oil [Fish Oil 1,000 mg Capsule] 1,000 mg PO DAILY 08/05 Ropinirole HCl [Requip 0.25 mg Tablet] 0.25 mg PO QHS 08/05/18 Vitamin B Complex [Vitamin B-100 Complex] 1 tab PO DAILY 08/05/18 Allergies/Adverse Reactions: ibuprofen [Ibuprofen] Allergy (Mild, Verified 07/12/18 00:41) Review of Systems All systems: reviewed and no additional remarkable complaints except as stated - as mentoned HPI Physical Exam Vital Signs: Temp Pulse Resp BP Pulse Ox 97.5 F 112/65 95 08/05/18 09:32 08/05/18 09:01 08/05/18 09:32 Intake & Output 08/04/18 08/05/18 08/06/18 06:59 06:59 06:59 Intake Total 417 Balance 417 Weight 142 lb General appearance: PRESENT: no acute distress, well-developed, well-nourished Head exam: PRESENT: normocephalic, other - note of ecchymoses on the left periorbital area Eye exam: PRESENT: conjunctiva pink, EOMI, PERRLA. ABSENT: scleral icterus Respiratory exam: PRESENT: clear to auscultation deepak. ABSENT: rales, rhonchi, wheezes Cardiovascular exam: PRESENT: RRR. ABSENT: diastolic murmur, rubs, systolic murmur Pulses: PRESENT: normal dorsalis pedis pul GI/Abdominal exam: PRESENT: normal bowel sounds, soft. ABSENT: distended, guarding, mass, organolmegaly, rebound, tenderness Rectal exam: PRESENT: deferred Extremities exam: PRESENT: tenderness - tenderness and swelling on the left hip , left leg externally rotated Neurological exam: PRESENT: alert, awake, oriented to person, oriented to place , oriented to time, oriented to situation, CN II-XII grossly intact, motor sensory deficit - 4/5 motor strength on the left leg, +Babinski reflex on the left foot Psychiatric exam: PRESENT: appropriate affect, normal mood. ABSENT: homicidal ideation, suicidal ideation Results Impressions: Head CT 08/05/18 05:19 IMPRESSION: No acute intracranial abnormality TECHNICAL DOCUMENTATION: Quality ID # 436: Final reports with documentation of one or more dose reduction techniques (e.g., Automated exposure control, adjustment of the mA and/or kV according to patient size, use of iterative reconstruction technique) 2010 [employer]- All Rights Reserved Hip X-Ray 08/05/18 05:20 IMPRESSION: Fracture of the left femoral neck. Assessment & Plan - Diagnosis (1) Acute CVA (cerebrovascular accident) Is this a current diagnosis for this admission?: Yes Plan: Patient complained of new left leg weakness last night. She does have a 4/5 strength on dorsiflexion of the left foot and has a positive Babinski on the left foot. A stat MRI was done which showed an acute right sided pontine infarct. She did have a recent pontine bleed 3 weeks ago which appears to have resolved on repeat imaging. Patient presented beyond the window period for TPA and regardless will not be a candidate for TPA due to recent pontine bleed. Will consult PT/OT and speech therapy. Recommend against proceeding with surgery at this time. Discussed with patient and family in length and they verbalized understanding. This is a highly complex patient who had a recent pontine bleed and a new pontine infarct in the context of a complete left hip fracture. She was not sent on aspirin when she was recently discharged to rehab due to the pontine bleed. Will hold off on aspirin or antiplatelet for now. Recommend VTE prophylaxis with SQ heparin due to significant risk of VTE. Benefits and risks were again discussed with patient and son and they are amenable to plan. (2) Closed left hip fracture Qualifiers: Encounter type: initial encounter Qualified Code(s): S72.002A - Fracture of unspecified part of neck of left femur, initial encounter for closed fracture Is this a current diagnosis for this admission?: Yes Plan: Patient is deemed high risk for surgery at this time due to recent pontine bleed 3 weeks ago and acute/new onset pontine infarct. Discussed recommendation with Dr. Magallanes. (3) Hyponatremia Is this a current diagnosis for this admission?: Yes Plan: Patient has a history of hyponatremia. He was admitted last month for hyponatremia. She had polypharmacy and medications were modified. She was also on HCTZ. HCTZ was also discontinued. She was given IV fluids and her sodium normalized. A work-up for hyponatremi was purused but unfortunately, she was already given IV fluids on previous admission prior to work-up. She was given a liter of NS in the ER earlier. Will check urine studies. Will repeat BMP this afternoon. She does take sertraline which can also cause (albeit lower risk) hyponatremia. - Time Time Spent: 50 to 70 Minutes
--- NOTE | 2018-08-05 13:12 | RADIOLOGY REPORT (SQ) ---
EXAM DESCRIPTION: MRI HEAD WITHOUT COMPLETED DATE/TIME: 08/05/2018 12:59 pm REASON FOR STUDY: acute left foot weakness last night,+left Babinski COMPARISON: 08/26/2012 TECHNIQUE: Multiplanar imaging includes non-contrasted T1, T2, FLAIR, and diffusion with ADC map seq uences. Images stored on PACS. LIMITATIONS: None. FINDINGS: ANATOMY: No anomalies. Normal vascular flow voids. Pituitary fossa normal. CSF SPACES: Atrophy induced prominence of ventricles and CSF spaces. CEREBRUM: High signal intensity lesions scattered throughout the white matter on FLAIR imaging with d istribution suggesting micro-vascular ischemic changes. No evidence of hemorrhage, mass, or extraaxi al fluid collection. POSTERIOR FOSSA: Subcentimeter foci of old blood products in the right angeli. DIFFUSION IMAGING: Subcentimeter focus of increased signal on diffusion and corresponding decreased s ignal on ADC map in the right angeli. ORBITS: No masses. Globes normal. PARANASAL SINUSES: No fluid levels. Mucosa normal. OTHER: No other significant finding. IMPRESSION: Recurrent acute, nonhemorrhagic lacunar infarct right angeli. EVIDENCE OF ACUTE STROKE: YES. RIGHT VERTEBROBASILAR. TECHNICAL DOCUMENTATION: JOB ID: [id number] [employer]- All Rights Reserved Reading location - IP/workstation name: [email or web address]
[2018-08-05 13:41] LABS: OSMOLALITY,URINE 204 mOsm/kg (300-900)
[2018-08-05 13:46] LABS: ANION GAP 8 (5-19); BLOOD UREA NITROGEN 24 mg/dL (7-20); CALCIUM 9.3 mg/dL (8.4-10.2); CARBON DIOXIDE 22 mmol/L (22-30); CHLORIDE 99 mmol/L (98-107); GLUCOSE 87 mg/dL (75-110); SODIUM 129.2 mmol/L (137-145)
[2018-08-05 13:49] LABS: URINE SODIUM 43 mmol/L (30-90)
--- NOTE | 2018-08-05 18:59 | PDOC CONSULTATION ---
Consultation Consult Date: 08/05/18 Consult reason:: Left femoral neck fracture History of Present Illness Admission Date/PCP: 08/05/18 09:14 HUSAM SCOTT PA-C History of Present Illness: RAMY RASCON is a 72 year old female status post left lower extremity weakness that led to mechanical fall early in the this morning. Patient complains of left lower extremity weakness and left hip pain. Inability to stand up and weight-bear. Significant comorbidities include diabetes and a recent stroke. Denies any loss of consciousness but she did hit her head. Does not complain of any other extremity weakness or pain. Past Medical History Cardiac Medical History: Reports: Myocardial Infarction, Hyperlipidema, Hypertension Endocrine Medical History: Reports: Diabetes Mellitus Type 2 Psychiatric Medical History: Denies: Depression Social History Lives with: Family Smoking Status: Never Smoker Cigarettes Packs Per Day: 0.5 Number of Years Smokin Frequency of Alcohol Use: None Hx Recreational Drug Use: No Drugs: None Hx Prescription Drug Abuse: No Family History Family History: Reviewed & Not Pertinent Parental Family History Reviewed: No Children Family History Reviewed: No Sibling(s) Family History Reviewed.: No Medication/Allergy Home Medications: Atorvastatin Calcium [Lipitor 10 mg Tablet] 10 mg PO QHS 08/05/18 Bupropion HCl [Wellbutrin 75 mg Tablet] 75 mg PO DAILY 08/05/18 Cyanocobalamin (Vitamin B-12) [Vitamin B-12 1000 mcg Tablet] 1,000 mcg PO DAILY 08/05/18 Fluoxetine HCl [Prozac 20 mg Capsule] 20 mg PO DAILY 08/05/18 Folic Acid [Folvite 1 mg Tablet] 1 mg PO DAILY 08/05/18 Gabapentin [Neurontin 100 mg Capsule] 100 mg PO BID 08/05/18 Magnesium Oxide [Mag-Ox 400 mg Tablet] 400 mg PO DAILY 08/05/18 Melatonin [Melatonin 3 mg Tablet] 3 mg PO QHS 08/05/18 [place]-3 Fatty Acids/Fish Oil [Fish Oil 1,000 mg Capsule] 1,000 mg PO DAILY 08/05 Ropinirole HCl [Requip 0.25 mg Tablet] 0.25 mg PO QHS 08/05/18 Vitamin B Complex [Vitamin B-100 Complex] 1 tab PO DAILY 08/05/18 Allergies/Adverse Reactions: ibuprofen [Ibuprofen] Allergy (Mild, Verified 07/12/18 00:41) Review of Systems Review of Systems: Constitutional: [PRESENT: as per HPI. ABSENT: chills, fever(s), headache(s), weight gain, weight loss] Eyes: [ABSENT: visual disturbances] Ears: [ABSENT: hearing changes] Cardiovascular: [ABSENT: chest pain, dyspnea on exertion, edema, orthropnea, palpitations] Respiratory: [ABSENT: cough, hemoptysis] Gastrointestinal: [ABSENT: abdominal pain, constipation, diarrhea, hematemesis, hematochezia, nausea, vomiting] Genitourinary: [ABSENT: dysuria, hematuria] Musculoskeletal: As per HPI Integumentary: [ABSENT: rash, wounds] Neurological: [ABSENT abnormal speech, confusion, dizziness, does complain of focal weakness of the left lower extremity. Psychiatric: [ABSENT: anxiety, depression, homicidal ideation, suicidal ideation ] Endocrine: [ABSENT: cold intolerance, heat intolerance, menstrual abnormalities , polydipsia, polyuria] Hematologic/Lymphatic: [ABSENT: easy bleeding, easy bruising, lymphadenopathy] Physical Exam Vital Signs: Temp Pulse Resp BP Pulse Ox 36.4 C 79 13 151/92 H 92 08/05/18 16:37 08/05/18 16:37 08/05/18 16:37 08/05/18 16:37 08/05/18 16:37 Intake & Output 08/04/18 08/05/18 08/06/18 06:59 06:59 06:59 Intake Total 1125 Output Total 1200 Balance -75 Weight 65.5 kg General appearance: PRESENT: no acute distress, well-nourished Eye exam: PRESENT: EOMI, other - Pupils are symmetric and round. ABSENT: nystagmus Ear exam: PRESENT: normal external ear exam Mouth exam: PRESENT: neck supple Neck exam: ABSENT: lymphadenopathy, thyromegaly Respiratory exam: PRESENT: symmetrical, unlabored. ABSENT: accessory muscle use , tachypnea Cardiovascular exam: PRESENT: RRR Pulses: PRESENT: normal dorsalis pedis pul Vascular exam: PRESENT: normal capillary refill GI/Abdominal exam: PRESENT: soft. ABSENT: organolmegaly, tenderness Musculoskeletal exam: PRESENT: deformity, tenderness Neurological exam: PRESENT: alert, awake, oriented to person, oriented to place , oriented to time, oriented to situation Skin exam: PRESENT: intact, normal color. ABSENT: erythema, skin tears Adult Front & Back Image: 1 - Tender palpation over the left groin. Any attempt of log roll or range of motion causes acute pain in the left groin. No tenderness over the greater trochanter. The left lower extremity is short and mildly externally rotated. She does have good sensation to light touch grossly with good capillary refill and pulse with extension flexion of her ankle and toes without difficulty. She does have a mild Babinski positive. Results Laboratory Results: 08/05/18 13:10 08/05/18 08/05/18 13:10 13:10 Sodium 129.2 L Potassium 5.0 Chloride 99 Carbon Dioxide 22 Anion Gap 8 BUN 24 H Creatinine 2.07 H Est GFR ( Amer) 29 L Est GFR (Non-Af Amer) 24 L Glucose 87 Serum Osmolality 275 Calcium 9.3 Impressions: Head MRI 08/05/18 00:00 IMPRESSION: Recurrent acute, nonhemorrhagic lacunar infarct right angeli. EVIDENCE OF ACUTE STROKE: YES. RIGHT VERTEBROBASILAR. Head CT 08/05/18 05:19 IMPRESSION: No acute intracranial abnormality TECHNICAL DOCUMENTATION: Quality ID # 436: Final reports with documentation of one or more dose reduction techniques (e.g., Automated exposure control, adjustment of the mA and/or kV according to patient size, use of iterative reconstruction technique) 2010 [employer]- All Rights Reserved Hip X-Ray 08/05/18 05:20 IMPRESSION: Fracture of the left femoral neck. Assessment & Plan - Diagnosis (1) Fracture of femoral neck, left, closed Qualifiers: Encounter type: initial encounter Qualified Code(s): S72.002A - Fracture of unspecified part of neck of left femur, initial encounter for closed fracture Is this a current diagnosis for this admission?: Yes Plan: 72-year-old female with displaced left femoral neck fracture. Unfortunately the patient had just suffered her second cerebrovascular accident. Patient is no longer a good surgical candidate. Discussed the findings with the patient and with the son. Discussed for 6 weeks we may reconsider but at that point the risks and complications of surgery are still probably high. They understand she will be at high risks surgical candidate in the future as well with the multiple CVAs that she is suffered in this past couple weeks. In the meantime discussed with him that best ways to treat her nonoperatively and just treat her pain. Recommend DVT prophylaxis. Recommend a bed to avoid decubitus ulcers. Also recommend respiratory therapy to make sure patient does not develop pneumonia now that she will be bedrest. Did say that she can transfer to the chair once her pain tolerates it. In the meantime head above bed as tolerated.
[2018-08-05] MEDS: HEPARIN SOD (PORCINE) 5,000 UNIT/ML 1 ML SYRINGE SUBCUT SCH (21:35)
[2018-08-05] MEDS: ACETAMINOPHEN 325 MG TABLET PO PRN (21:35)
[2018-08-06] MEDS: HYDRALAZINE HCL INJ/PF 20 MG/1 ML SDV IV PRN (03:46)
[2018-08-06 05:45] LABS: ANION GAP 13 (5-19); BLOOD UREA NITROGEN 23 mg/dL (7-20); CALCIUM 9.7 mg/dL (8.4-10.2); CARBON DIOXIDE 21 mmol/L (22-30); CHLORIDE 99 mmol/L (98-107); GLUCOSE 68 mg/dL (75-110); POTASSIUM 4.7 mmol/L (3.6-5.0); SODIUM 132.7 mmol/L (137-145)
[2018-08-06] MEDS: ACETAMINOPHEN 325 MG TABLET PO PRN ×2 (06:05→22:47)
[2018-08-06] MEDS: HEPARIN SOD (PORCINE) 5,000 UNIT/ML 1 ML SYRINGE SUBCUT SCH ×2 (09:48→22:48)
[2018-08-06] MEDS: MORPHINE SULFATE 10 MG/ML INJ IV PRN ×3 (09:48→23:45)
--- NOTE | 2018-08-06 11:59 | PDOC PROGRESS REPORT ---
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 Patient was brought to ED after mechanical fall and was found to have a left hip fracture. Admission she had a stated that she was feeling weak the night before on the left leg she did not make too much of it went to sleep. Around 3 AM she woke up to go to the restroom still feeling weak on the left side and fell on the way to the bathroom she denies any head trauma or loss of consciousness. Initial CT on admission was negative for any acute abnormalities she had a recent pontine bleed on 07/11/2018 was admitted and provided medical and was discharged to rehab she went home a week ago. She states she is living alone and she is independent and she has home health at home. Ortho was consulted for evaluation and management of left femoral neck fracture unfortunately she was considered high risk for any intervention at this point. As per Ortho note decision was discussed with herself and her son and it was decided that in 6 weeks she could be reconsidered for surgery even though even at that time she still remains high risk for surgery. Reason For Visit: LEFT HIP FRACTURE Physical Exam Vital Signs: Temp Pulse Resp BP Pulse Ox 97.7 F 78 16 183/91 H 100 08/06/18 07:15 08/06/18 08:00 08/06/18 08:00 08/06/18 08:00 08/06/18 08:00 Intake & Output 08/05/18 08/06/18 08/07/18 06:59 06:59 06:59 Intake Total 1625 Output Total 1450 Balance 175 Weight 65.7 kg General appearance: PRESENT: no acute distress, well-developed, well-nourished Head exam: PRESENT: atraumatic, normocephalic Eye exam: PRESENT: conjunctiva pink, EOMI, PERRLA. ABSENT: scleral icterus Ear exam: PRESENT: normal external ear exam Mouth exam: PRESENT: moist, tongue midline Neck exam: ABSENT: carotid bruit, JVD, lymphadenopathy, thyromegaly Respiratory exam: PRESENT: clear to auscultation deepak. ABSENT: rales, rhonchi, wheezes Cardiovascular exam: PRESENT: RRR. ABSENT: diastolic murmur, rubs, systolic murmur Pulses: PRESENT: normal dorsalis pedis pul Vascular exam: PRESENT: normal capillary refill GI/Abdominal exam: PRESENT: normal bowel sounds, soft. ABSENT: distended, guarding, mass, organolmegaly, rebound, tenderness Rectal exam: PRESENT: deferred Extremities exam: PRESENT: full ROM. ABSENT: calf tenderness, clubbing, pedal edema Musculoskeletal exam: PRESENT: tenderness, other - Tender to palpation over the left groin left lower extremity is shortened and externally rotated. Patient is able to move her leg but with pain. Neurological exam: PRESENT: alert, awake, oriented to person, oriented to place , oriented to time, oriented to situation, CN II-XII grossly intact. ABSENT: motor sensory deficit Psychiatric exam: PRESENT: appropriate affect, normal mood. ABSENT: homicidal ideation, suicidal ideation Skin exam: PRESENT: dry, intact, warm. ABSENT: cyanosis, rash Results Laboratory Results: 08/06/18 04:53 08/05/18 08/05/18 08/06/18 13:10 13:10 04:53 Sodium 129.2 L 132.7 L Potassium 5.0 4.7 Chloride 99 99 Carbon Dioxide 22 21 L Anion Gap 8 13 BUN 24 H 23 H Creatinine 2.07 H 2.11 H Est GFR ( Amer) 29 L 28 L Est GFR (Non-Af Amer) 24 L 23 L Glucose 87 68 L Serum Osmolality 275 Calcium 9.3 9.7 Impressions: Head MRI 08/05/18 00:00 IMPRESSION: Recurrent acute, nonhemorrhagic lacunar infarct right angeli. EVIDENCE OF ACUTE STROKE: YES. RIGHT VERTEBROBASILAR. Head CT 08/05/18 05:19 IMPRESSION: No acute intracranial abnormality TECHNICAL DOCUMENTATION: Quality ID # 436: Final reports with documentation of one or more dose reduction techniques (e.g., Automated exposure control, adjustment of the mA and/or kV according to patient size, use of iterative reconstruction technique) 2010 [employer]- All Rights Reserved Hip X-Ray 08/05/18 05:20 IMPRESSION: Fracture of the left femoral neck. Assessment & Plan - Diagnosis (1) Acute CVA (cerebrovascular accident) Is this a current diagnosis for this admission?: Yes Plan: MRI positive for recurrent acute nonhemorrhagic lacunar infarct in the right angeli. Not a TPA candidate due to recent hemorrhagic infarct and patient arriving beyond the window for TPA. Continue PT OT ST. Continue DVT prophylaxis, and high intensity statins. She was not sent on aspirin when she was recently discharged to rehab due to the pontine bleed. Will hold off on aspirin or antiplatelet for now. Attempt was made by previous patient's physician to get hold neurology at [facility] where she was hospitalized 3 weeks ago regarding antiplatelet usage, unfortunately he was unsuccessful. We will try to get hold of neurology and [facility] again today. (2) Closed left hip fracture Qualifiers: Encounter type: initial encounter Qualified Code(s): S72.002A - Fracture of unspecified part of neck of left femur, initial encounter for closed fracture Is this a current diagnosis for this admission?: Yes Plan: Ortho on board. Patient was deemed high risk for any intervention at this time due to recent hemorrhagic stroke and new onset and ischemic pontine infarct. Continue supportive measures. (3) Hyponatremia Is this a current diagnosis for this admission?: Yes Plan: Patient has history of hyponatremia. We will continue volume restriction. Follow-up CMP tomorrow. Note. Patient was recently hospitalized for evaluation of hyponatremia. It was noted the patient was taking polypharmacy and her medications were reconciled. A workup for hyponatremia was not done due to the fact the patient had received IV fluids in the ED. (4) Hypertension Is this a current diagnosis for this admission?: Yes Plan: Not controlled. Will start patient on calcium channel blockers and beta- blockers. Adjust medications as needed. Will avoid diuretics due to history of hyponatremia and CKD. (5) CKD (chronic kidney disease) stage 4, GFR 15-29 ml/min Is this a current diagnosis for this admission?: No Plan: Patient is still making urine. Outpatient nephrology follow-up. Avoid nephrotoxic medications. Electrolytes within normal limits. Monitor volume status. CMP tomorrow. (6) Elevated troponin Is this a current diagnosis for this admission?: Yes Plan: Denies any active chest pain. EKG on admission negative. Trend troponins. Note patient has history of CKD this could possibly due to that.
[2018-08-06] MEDS: AMLODIPINE BESYLATE 5 MG TABLET PO SCH (13:45)
[2018-08-06] MEDS: ATORVASTATIN CALCIUM 40 MG TABLET PO SCH (22:47)
[2018-08-06] MEDS: CARVEDILOL 6.25 MG TABLET PO SCH (22:47)
[2018-08-07 02:34] LABS: HEMATOCRIT 24.9 % (36.0-47.0); HEMOGLOBIN 8.8 g/dL (12.0-15.5); MEAN CORPUSCULAR HEMOGLOBIN 29.2 pg (27.0-33.4); MEAN CORPUSCULAR HGB CONC 35.3 g/dL (32.0-36.0); MEAN CORPUSCULAR VOLUME 83 fl (80-97); PLATELET COUNT 201 10^3/uL (150-450); RED BLOOD COUNT 3.02 10^6/uL (3.72-5.28); RED CELL DISTRIBUTION WIDTH 15.7 % (11.5-14.0); WHITE BLOOD COUNT 9.3 10^3/uL (4.0-10.5)
[2018-08-07 02:46] LABS: ALANINE AMINOTRANSFERASE 20 U/L (9-52); ALBUMIN 2.7 g/dL (3.5-5.0); ALKALINE PHOSPHATASE 80 U/L (38-126); ANION GAP 8 (5-19); ASPARTATE AMINO TRANSFERASE 15 U/L (14-36); BILIRUBIN,DIRECT 0.6 mg/dL (0.0-0.4); BILIRUBIN,TOTAL 0.7 mg/dL (0.2-1.3); BLOOD UREA NITROGEN 24 mg/dL (7-20); CALCIUM 9.2 mg/dL (8.4-10.2); CARBON DIOXIDE 23 mmol/L (22-30); CHLORIDE 98 mmol/L (98-107); GLUCOSE 79 mg/dL (75-110); TOTAL PROTEIN 5.5 g/dL (6.3-8.2)
[2018-08-07 02:57] LABS: ABSOLUTE LYMPHOCYTES# (MANUAL) 0.7 10^3/uL (0.5-4.7); ABSOLUTE MONOCYTES # (MANUAL) 0.1 10^3/uL (0.1-1.4); ABSOLUTE NEUTROPHILS# (MANUAL) 8.3 10^3/uL (1.7-8.2); ANISOCYTOSIS SLIGHT; BASOPHILS % (MANUAL) 0 % (0-2); EOSINOPHILS % (MANUAL) 3 % (0-6); LYMPHOCYTES % (MANUAL) 7 % (13-45); MONOCYTES % (MANUAL) 1 % (3-13); PLATELET COMMENT ADEQUATE; SEGMENTED NEUTROPHILS % (MAN) 89 % (42-78); TOTAL CELLS COUNTED 100
[2018-08-07] MEDS: ACETAMINOPHEN 325 MG TABLET PO PRN (10:22)
[2018-08-07] MEDS: CARVEDILOL 6.25 MG TABLET PO SCH ×2 (10:22→22:24)
[2018-08-07] MEDS: HEPARIN SOD (PORCINE) 5,000 UNIT/ML 1 ML SYRINGE SUBCUT SCH ×2 (10:23→22:25)
[2018-08-07] MEDS: AMLODIPINE BESYLATE 5 MG TABLET PO SCH (10:23)
[2018-08-07] MEDS: MORPHINE SULFATE 10 MG/ML INJ IV PRN ×2 (10:24→22:24)
[2018-08-07] MEDS ORDERED: ONDANSETRON HCL INJ/PF 4 MG/2 ML SDV IV PRN (14:49)
--- NOTE | 2018-08-07 17:32 | PDOC PROGRESS REPORT ---
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 Patient was brought to ED after mechanical fall and was found to have a left hip fracture. Admission she had a stated that she was feeling weak the night before on the left leg she did not make too much of it went to sleep. Around 3 AM she woke up to go to the restroom still feeling weak on the left side and fell on the way to the bathroom she denies any head trauma or loss of consciousness. Initial CT on admission was negative for any acute abnormalities but MRI on 11/2017 showed recurrent acute, nonhemorrhagic lacunar infarct in the right angeli. As per history pt had a recent pontine bleed on 07/11/2018 was admitted [facility] and was discharged to rehab for two weeks. She went home a week ago. We have tried several times to get through to fighting to get his at her medical records. Her nurse was able to get through [facility] today. We waiting for her medical records to see exactly when she had the first stroke and and what were the plans. She states she is living alone and she is independent and she has home health at home. Ortho was consulted for evaluation and management of left femoral neck fracture unfortunately she was considered high risk for any intervention at this point. As per Ortho note decision was discussed with herself and her son and it was decided that in 6 weeks she could be reconsidered for surgery even though even at that time she still remains high risk for surgery. I visited the patient twice a day early in the morning she was a bit confused and was asking where she was. But on my second visit around 3 PM patient was alert and oriented x3 and very cooperative with physical examination. She denies any fever, chills, nausea, vomiting, diarrhea, constipation or any urinary symptoms. She still having left hip pain which is controlled with p.o. Tylenol. Reason For Visit: LEFT HIP FRACTURE Physical Exam Vital Signs: Temp Pulse Resp BP Pulse Ox 97.6 F 80 18 116/64 92 08/07/18 11:04 08/07/18 16:26 08/07/18 11:04 08/07/18 11:04 08/07/18 11:04 Intake & Output 08/06/18 08/07/18 08/08/18 06:59 06:59 06:59 Intake Total 1625 1294 237 Output Total 1450 700 100 Balance 175 594 137 Weight 65.7 kg 68 kg General appearance: PRESENT: no acute distress, well-developed, well-nourished Head exam: PRESENT: atraumatic, normocephalic Eye exam: PRESENT: conjunctiva pink, EOMI, PERRLA. ABSENT: scleral icterus Ear exam: PRESENT: normal external ear exam Mouth exam: PRESENT: moist, tongue midline Neck exam: ABSENT: carotid bruit, JVD, lymphadenopathy, thyromegaly Respiratory exam: PRESENT: clear to auscultation deepak. ABSENT: rales, rhonchi, wheezes Cardiovascular exam: PRESENT: RRR. ABSENT: diastolic murmur, rubs, systolic murmur Pulses: PRESENT: normal dorsalis pedis pul Vascular exam: PRESENT: normal capillary refill GI/Abdominal exam: PRESENT: normal bowel sounds, soft. ABSENT: distended, guarding, mass, organolmegaly, rebound, tenderness Rectal exam: PRESENT: deferred Extremities exam: PRESENT: full ROM, tenderness, other - Left lower leg shorter than the right one. Mildly externally rotated. Patient is able to flex her hip. Mild tenderness upon palpation of the left hip.. ABSENT: calf tenderness , clubbing, pedal edema Neurological exam: PRESENT: alert, awake, oriented to person, oriented to place , oriented to time, oriented to situation, CN II-XII grossly intact. ABSENT: motor sensory deficit Psychiatric exam: PRESENT: appropriate affect, normal mood. ABSENT: homicidal ideation, suicidal ideation Skin exam: PRESENT: dry, intact, warm. ABSENT: cyanosis, rash Results Laboratory Results: 08/07/18 02:13 08/07/18 02:13 08/07/18 08/07/18 02:13 02:13 WBC 9.3 RBC 3.02 L Hgb 8.8 L Hct 24.9 L MCV 83 MCH 29.2 MCHC 35.3 RDW 15.7 H Plt Count 201 Seg Neutrophils % Not Reportable Lymphocytes % Not Reportable Monocytes % Not Reportable Eosinophils % Not Reportable Basophils % Not Reportable Absolute Neutrophils Not Reportable Absolute Lymphocytes Not Reportable Absolute Monocytes Not Reportable Absolute Eosinophils Not Reportable Absolute Basophils Not Reportable Sodium 129.0 L Potassium 5.0 Chloride 98 Carbon Dioxide 23 Anion Gap 8 BUN 24 H Creatinine 2.04 H Est GFR ( Amer) 29 L Est GFR (Non-Af Amer) 24 L Glucose 79 Calcium 9.2 Magnesium 1.8 Total Bilirubin 0.7 AST 15 ALT 20 Alkaline Phosphatase 80 Total Protein 5.5 L Albumin 2.7 L 08/06/18 08/06/18 08/07/18 11:54 19:22 02:13 Troponin I 0.081 0.076 0.059 Impressions: Head MRI 08/05/18 00:00 IMPRESSION: Recurrent acute, nonhemorrhagic lacunar infarct right angeli. EVIDENCE OF ACUTE STROKE: YES. RIGHT VERTEBROBASILAR. Head CT 08/05/18 05:19 IMPRESSION: No acute intracranial abnormality TECHNICAL DOCUMENTATION: Quality ID # 436: Final reports with documentation of one or more dose reduction techniques (e.g., Automated exposure control, adjustment of the mA and/or kV according to patient size, use of iterative reconstruction technique) 2010 [employer]- All Rights Reserved Hip X-Ray 08/05/18 05:20 IMPRESSION: Fracture of the left femoral neck. Assessment & Plan - Diagnosis (1) Acute CVA (cerebrovascular accident) Is this a current diagnosis for this admission?: Yes Plan: MRI positive for recurrent acute nonhemorrhagic lacunar infarct in the right angeli. Not a TPA candidate due to recent hemorrhagic infarct and patient arriving beyond the window for TPA. Continue PT OT ST. Continue DVT prophylaxis, and high intensity statins. She was not sent on aspirin when she was recently discharged to rehab due to the pontine bleed. Will hold off on aspirin or antiplatelet for now. Pending medical records. Attempt was made by previous patient's physician to get hold neurology at [facility] where she was hospitalized 3 weeks ago regarding antiplatelet usage, unfortunately he was unsuccessful. We were able to get through [facility] today medical records have been requested. (2) Closed left hip fracture Qualifiers: Encounter type: initial encounter Qualified Code(s): S72.002A - Fracture of unspecified part of neck of left femur, initial encounter for closed fracture Is this a current diagnosis for this admission?: Yes Plan: Ortho on board. Patient was deemed high risk for any intervention at this time due to recent hemorrhagic stroke and new onset and ischemic pontine infarct. Continue supportive measures. Called Ortho again and talk to Dr. Vasyl Jack. And asked him about plans for surgery. He aked me to talk to anesthesia and if they clear her he will go ahead with the surgery. Called Dr. Majano from anesthesiology and he suggested if the stroke was about a month ago they can give the clearance. Waiting for medical records from [facility] to see exactly when she had the first stroke (3) Hyponatremia Is this a current diagnosis for this admission?: Yes Plan: Patient has history of hyponatremia. We will continue volume restriction. Follow-up CMP tomorrow. Note. Patient was recently hospitalized for evaluation of hyponatremia. It was noted the patient was taking polypharmacy and her medications were reconciled. A workup for hyponatremia was not done due to the fact the patient had received IV fluids in the ED. (4) Hypertension Is this a current diagnosis for this admission?: Yes Plan: Proving. Continue amlodipine and carvedilol. Adjust medications as needed. Will avoid diuretics due to history of hyponatremia and CKD. (5) CKD (chronic kidney disease) stage 4, GFR 15-29 ml/min Is this a current diagnosis for this admission?: No Plan: Patient is still making urine. Outpatient nephrology follow-up. Avoid nephrotoxic medications. Electrolytes within normal limits. Monitor volume status. CMP tomorrow. (6) Elevated troponin Is this a current diagnosis for this admission?: Yes Plan: Denies any active chest pain. EKG on admission negative. Troponins trending down. Denies any active chest pain. Note patient has history of CKD this could possibly due to that.
[2018-08-07] MEDS: ATORVASTATIN CALCIUM 40 MG TABLET PO SCH (22:24)
[2018-08-08 06:07] LABS: ABSOLUTE BASOPHILS # (AUTO) 0.1 10^3/uL (0.0-0.2); ABSOLUTE EOSINOPHILS # (AUTO) 0.3 10^3/uL (0.0-0.6); ABSOLUTE LYMPHOCYTES (AUTO) 0.6 10^3/uL (0.5-4.7); ABSOLUTE MONOCYTES (AUTO) 0.5 10^3/uL (0.1-1.4); ABSOLUTE NEUT (AUTO) 4.7 10^3/uL (1.7-8.2); BASOPHILS % (AUTO) 1.2 % (0-2); EOSINOPHILS % (AUTO) 5.1 % (0-6); HEMATOCRIT 24.5 % (36.0-47.0); HEMOGLOBIN 8.6 g/dL (12.0-15.5); MEAN CORPUSCULAR HGB CONC 35.2 g/dL (32.0-36.0); MEAN CORPUSCULAR VOLUME 82 fl (80-97); MONOCYTES % (AUTO) 7.9 % (3-13); PLATELET COUNT 215 10^3/uL (150-450); RED BLOOD COUNT 2.97 10^6/uL (3.72-5.28); RED CELL DISTRIBUTION WIDTH 15.7 % (11.5-14.0); SEGMENTED NEUTROPHILS % (AUTO) 75.8 % (42-78); TOTAL CELLS COUNTED % (AUTO) 100 %; WHITE BLOOD COUNT 6.2 10^3/uL (4.0-10.5)
[2018-08-08 06:33] LABS: ALANINE AMINOTRANSFERASE 18 U/L (9-52); ALBUMIN 2.7 g/dL (3.5-5.0); ALKALINE PHOSPHATASE 83 U/L (38-126); ANION GAP 10 (5-19); ASPARTATE AMINO TRANSFERASE 14 U/L (14-36); BILIRUBIN,DIRECT 0.4 mg/dL (0.0-0.4); BILIRUBIN,TOTAL 0.5 mg/dL (0.2-1.3); BLOOD UREA NITROGEN 25 mg/dL (7-20); CALCIUM 9.2 mg/dL (8.4-10.2); CARBON DIOXIDE 24 mmol/L (22-30); CHLORIDE 96 mmol/L (98-107); GLUCOSE 66 mg/dL (75-110); POTASSIUM 5.1 mmol/L (3.6-5.0); SODIUM 130.2 mmol/L (137-145); TOTAL PROTEIN 5.3 g/dL (6.3-8.2)
[2018-08-08] MEDS ORDERED: AMLODIPINE BESYLATE 5 MG TABLET PO SCH (09:11)
[2018-08-08] MEDS: CARVEDILOL 6.25 MG TABLET PO SCH (09:45)
[2018-08-08] MEDS: HEPARIN SOD (PORCINE) 5,000 UNIT/ML 1 ML SYRINGE SUBCUT SCH (09:46)
[2018-08-08] MEDS ORDERED: AMLODIPINE BESYLATE 10 MG TABLET PO SCH (10:00)
[2018-08-08] MEDS: MORPHINE SULFATE 10 MG/ML INJ IV PRN ×2 (13:10→20:48)
--- NOTE | 2018-08-08 14:28 | PDOC PROGRESS REPORT ---
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 Patient was brought to ED after mechanical fall and was found to have a left hip fracture. Admission she had a stated that she was feeling weak the night before on the left leg she did not make too much of it went to sleep. Around 3 AM she woke up to go to the restroom still feeling weak on the left side and fell on the way to the bathroom she denies any head trauma or loss of consciousness. Initial CT on admission was negative for any acute abnormalities but MRI on 11/2017 showed recurrent acute, nonhemorrhagic lacunar infarct in the right angeli. Medical records obtained 08/07/2018. Patient had a pontine bleed on 07/12/2018 and was admitted [facility] and was discharged to rehab for two weeks. She went home a week ago. Review of records showed that patient had CTA head which showed 50% stenosis of the left vertebral artery, 2D Echo was done which showed a 60-65% ejection fraction, no shunt, upper septal hypertrophy because consistent with sigmoid septum. Hemoglobin A1c was 5.2. I was able to talk to Dr. Yoon the neurologist [facility] and asked him about starting antiplatelet. He stated patient could be safely started on aspirin 81 mg daily. Yesterday I was able to talk to Dr. Vasyl Jack from Ortho and Dr. Majano from anesthesiology for reevaluating the patient for possible surgery. I got a call from Dr. Jack today that he had a conversation.with Dr. Majano from anesthesia and patient is still deemed too high risk for any intervention. Dr. Fragoso suggested that patient could be transferred to another facility where he could be evaluated for possible. I called [facility] possible transfer of the patient. They asked me to push over her imaging so it could be evaluated by the orthopedic department. I had a call back and they stated there scheduled if full until next week. They also said that they called their sister hospital where she could be possibly transferred but unfortunately they were also not able to accept the patient due to their capacity. They suggested that we should try to transfer the patient to another facility. I will try to call [facility] and see if patient could be transferred there. Meanwhile I have consulted Dr. Moses Calderon from rehab for any recommendation. Patient is feeling much better today alert oriented x3. I had a conversation with her and she was very pleasant and cooperative with a physical examination. I have updated her about her high risk surgery and the fact that the bed been trying to transfer her. She understands the situation. She had a good sleep overnight and her pain has been controlled with Tylenol. Reason For Visit: LEFT HIP FRACTURE Physical Exam Vital Signs: Temp Pulse Resp BP Pulse Ox 97.6 F 66 10 L 146/64 H 94 08/08/18 07:21 08/08/18 07:21 08/08/18 07:21 08/08/18 07:21 08/08/18 07:21 Intake & Output 08/07/18 08/08/18 08/09/18 06:59 06:59 06:59 Intake Total 1294 874 Output Total 700 650 Balance 594 224 Weight 68 kg 65.4 kg Results Laboratory Results: 08/08/18 05:21 08/08/18 05:21 08/08/18 08/08/18 05:21 05:21 WBC 6.2 RBC 2.97 L Hgb 8.6 L Hct 24.5 L MCV 82 MCH 29.0 MCHC 35.2 RDW 15.7 H Plt Count 215 Seg Neutrophils % 75.8 Lymphocytes % 10.0 L Monocytes % 7.9 Eosinophils % 5.1 Basophils % 1.2 Absolute Neutrophils 4.7 Absolute Lymphocytes 0.6 Absolute Monocytes 0.5 Absolute Eosinophils 0.3 Absolute Basophils 0.1 Sodium 130.2 L Potassium 5.1 H Chloride 96 L Carbon Dioxide 24 Anion Gap 10 BUN 25 H Creatinine 2.09 H Est GFR ( Amer) 28 L Est GFR (Non-Af Amer) 23 L Glucose 66 L Calcium 9.2 Total Bilirubin 0.5 AST 14 ALT 18 Alkaline Phosphatase 83 Total Protein 5.3 L Albumin 2.7 L 08/06/18 08/06/18 08/07/18 11:54 19:22 02:13 Troponin I 0.081 0.076 0.059 Impressions: Head MRI 08/05/18 00:00 IMPRESSION: Recurrent acute, nonhemorrhagic lacunar infarct right angeli. EVIDENCE OF ACUTE STROKE: YES. RIGHT VERTEBROBASILAR. Head CT 08/05/18 05:19 IMPRESSION: No acute intracranial abnormality TECHNICAL DOCUMENTATION: Quality ID # 436: Final reports with documentation of one or more dose reduction techniques (e.g., Automated exposure control, adjustment of the mA and/or kV according to patient size, use of iterative reconstruction technique) 2010 [email or web address]- All Rights Reserved Hip X-Ray 08/05/18 05:20 IMPRESSION: Fracture of the left femoral neck. Assessment & Plan - Diagnosis (1) Acute CVA (cerebrovascular accident) Is this a current diagnosis for this admission?: Yes Plan: MRI positive for recurrent acute nonhemorrhagic lacunar infarct in the right angeli. Not a TPA candidate due to recent hemorrhagic infarct and patient arriving beyond the window for TPA. Continue PT OT ST. Continue DVT prophylaxis, and high intensity statins. She was not sent on aspirin when she was recently discharged to rehab due to the pontine bleed. Antiplatelet therapy was held until consulting neurology. I was able to get hold of Dr. Walsh neurologist at [facility] this morning. I discussed the case with him and asked him about resumption of antiplatelets. He suggested that since patient had a nonhemorrhagic infarct more than 3 weeks ago and her infarct is nonhemorrhagic we could safely start her on daily dose of 81 mg aspirin. (2) Closed left hip fracture Qualifiers: Encounter type: initial encounter Qualified Code(s): S72.002A - Fracture of unspecified part of neck of left femur, initial encounter for closed fracture Is this a current diagnosis for this admission?: Yes Plan: Ortho on board. Patient was deemed high risk for any intervention at this time due to recent hemorrhagic stroke and new onset and ischemic pontine infarct. Continue supportive measures. Called Ortho again and talk to Dr. Vasyl Jack. And asked him about plans for surgery. He aked me to talk to anesthesia and if they clear her he will go ahead with the surgery. Called Dr. Majano from anesthesiology and he suggested if the stroke was about a month ago they can give the clearance. Waiting for medical records from [facility] to see exactly when she had the first stroke 08/07/2018 I was able to talk to Dr. Vasyl Jack from Ortho and Dr. Majano from anesthesiology for reevaluating the patient for possible surgery. 08/08/2018 I got a call from Dr. Jack today that he had a conversation.with Dr. Majano from anesthesia and patient is still deemed too high risk for any intervention. Dr. Fragoso suggested that patient could be transferred to another facility where he could be evaluated for possible. [facility] They asked me to push over her imaging so it could be evaluated by the orthopedic department. I had a call back and they stated there scheduled if full until next week. They also said that they called their sister hospital where she could be possibly transferred but unfortunately they were also not able to accept the patient due to their capacity. They suggested that we should try to transfer the patient to another facility. I will try to call [facility] and see if patient could be transferred there. Meanwhile I have consulted Dr. Moses Calderon from rehab for any recommendation. Patient is feeling much better today alert oriented x3. I had a conversation with her and she was very pleasant and cooperative with a physical examination. I have updated her about her high risk surgery and the fact that the bed been trying to transfer her. She understands the situation. She had a good sleep overnight and her pain has been controlled with Tylenol. (3) Hyponatremia Is this a current diagnosis for this admission?: Yes Plan: Improving. Started patient on normal saline maintenance. (4) Hypertension Is this a current diagnosis for this admission?: Yes Plan: Proving. Increase Norvasc to 10 mg. He low-dose carvedilol. Hold lisinopril due to worsening kidney function. Adjust medications as needed. Will avoid diuretics due to history of hyponatremia and CKD. (5) CKD (chronic kidney disease) stage 4, GFR 15-29 ml/min Is this a current diagnosis for this admission?: No Plan: Patient is still making urine. Outpatient nephrology follow-up. Avoid nephrotoxic medications. Electrolytes within normal limits. Monitor volume status. CMP tomorrow. (6) Elevated troponin Is this a current diagnosis for this admission?: Yes Plan: Denies any active chest pain. EKG on admission negative. Troponins trending down. Echo from 07/2018 showed a normal ejection fraction. Note patient has history of CKD this could possibly due to that. (7) Anemia Is this a current diagnosis for this admission?: Yes Plan: Normocytic anemia. H&H stable. This could possibly be due to her CKD. Was able to talk to Dr. Mejia Cabrera blood bank booking clerk. He stated that he is not station cleaning porter until the of this month and Dr. Bailey will be starting on the of this month. If patient is still here by 08/12/2018 will reconsult nephrology. Meanwhile monitor H&H. CBC daily.
--- NOTE | 2018-08-08 15:26 | PDOC CONSULTATION ---
Consultation Consult Date: 08/08/18 Consult reason:: CKD and anemia History of Present Illness Admission Date/PCP: 08/05/18 09:14 HUSAM SCOTT PA-C History of Present Illness: RAMY RASCON is a 72 year old female with a past medical history of CKD 4 , followed by me, hypertension, nasopharyngeal cancer with prior radiation and chemotherapy in 2013 at [facility], history of PA with no prior stenting or CABG, and recent pontine hemorrhagic stroke 3 weeks ago. She was brought to the ED on 08/05 by EMS after falling. Patient had weakness of her legs prior to the fall. She fell without hitting her head. She got up and went back to sleep. She later woke up and went to the bathroom. Her left side was still week and she fell again, this time hitting her head. She was having pain in her left hip and this is when she decided to call EMS. In the ED, a CT of the head, hip and labs were done. The CT of the head initial showed no acute changes. She had a recent pontine bleed on 07/11/18 and was admitted to [facility] and was subsequently discharged to rehab. She was discharged back home more than a week ago. The imagining of her hip showed a fracture that required surgery but due to her co-morbidities she deemed a high risk patient. Labs were showed a decreased hemoglobin in the 8s, a creatinine of 2.2 and a sodium in the high 120s. She was placed on fluid restrictions for the sodium and the other two were observed. When last seeing me in the office she had a creatinine of 2.3, which is baseline. When examining the patient appeared to be altered from when I last saw her two months ago. Possible residue affects from the stroke. She was not able to identify who I was are where she was. Normally she has no issue with identifying those two. She denies chest pain, SOB, n/v/d/c. Past Medical History Cardiac Medical History: Reports: Hyperlipidemia, Myocardial Infarction Endocrine Medical History: Reports: Diabetes Mellitus Type 2 Renal/ Medical History: Reports: Chronic Kidney Disease Stage IV, Hyponatremia Psychiatric Medical History: Denies: Depression Past Surgical History Past Surgical History: Reports: None Social History Lives with: Family Smoking Status: Never Smoker Cigarettes Packs Per Day: 0.5 Number of Years Smokin Frequency of Alcohol Use: None Hx Recreational Drug Use: No Drugs: None Hx Prescription Drug Abuse: No - Advance Directive Resuscitation Status: Full Code Family History Parental Family History Reviewed: No Children Family History Reviewed: NA Sibling(s) Family History Reviewed.: NA Medication/Allergy Home Medications: Atorvastatin Calcium [Lipitor 10 mg Tablet] 10 mg PO QHS 08/05/18 Bupropion HCl [Wellbutrin 75 mg Tablet] 75 mg PO DAILY 08/05/18 Cyanocobalamin (Vitamin B-12) [Vitamin B-12 1000 mcg Tablet] 1,000 mcg PO DAILY 08/05/18 Fluoxetine HCl [Prozac 20 mg Capsule] 20 mg PO DAILY 08/05/18 Folic Acid [Folvite 1 mg Tablet] 1 mg PO DAILY 08/05/18 Gabapentin [Neurontin 100 mg Capsule] 100 mg PO BID 08/05/18 Magnesium Oxide [Mag-Ox 400 mg Tablet] 400 mg PO DAILY 08/05/18 Melatonin [Melatonin 3 mg Tablet] 3 mg PO QHS 08/05/18 [place]-3 Fatty Acids/Fish Oil [Fish Oil 1,000 mg Capsule] 1,000 mg PO DAILY 08/05 Ropinirole HCl [Requip 0.25 mg Tablet] 0.25 mg PO QHS 08/05/18 Vitamin B Complex [Vitamin B-100 Complex] 1 tab PO DAILY 08/05/18 Allergies/Adverse Reactions: ibuprofen [Ibuprofen] Allergy (Mild, Verified 07/12/18 00:41) Review of Systems Constitutional: PRESENT: anorexia, weakness. ABSENT: chills, fever(s) Nose, Mouth, and Throat: PRESENT: headache(s) Cardiovascular: ABSENT: chest pain, dyspnea on exertion, edema, orthropnea, palpitations Respiratory: ABSENT: cough, dyspnea, sputum Gastrointestinal: ABSENT: abdominal pain, constipation, diarrhea, nausea, vomiting Genitourinary: ABSENT: difficulty urinating, dysuria Musculoskeletal: PRESENT: deformity, joint swelling, muscle weakness, other - - hip pain Neurological: PRESENT: focal weakness, frequent falls, lack of coordination, memory loss, weakness. ABSENT: dizziness, numbness, syncope, vertigo Physical Exam Vital Signs: Temp Pulse Resp BP Pulse Ox 97.2 F 67 10 L 139/59 H 90 L 08/08/18 11:17 08/08/18 11:17 08/08/18 11:17 08/08/18 11:17 08/08/18 11:17 Intake & Output 08/07/18 08/08/18 08/09/18 06:59 06:59 06:59 Intake Total 1294 874 400 Output Total 700 650 400 Balance 594 224 0 Weight 68 kg 65.4 kg General appearance: PRESENT: no acute distress, thin. ABSENT: well-developed, well-nourished Mouth exam: PRESENT: moist, neck supple Neck exam: PRESENT: full ROM. ABSENT: JVD Respiratory exam: PRESENT: clear to auscultation deepak. ABSENT: crackles, rales, rhonchi, wheezes Cardiovascular exam: PRESENT: RRR, +S1, +S2 GI/Abdominal exam: PRESENT: soft. ABSENT: tenderness Extremities exam: PRESENT: tenderness. ABSENT: pedal edema, +1 edema, +2 edema Musculoskeletal exam: PRESENT: deformity, tenderness. ABSENT: ambulatory, normal inspection Neurological exam: PRESENT: altered, awake, oriented to time, oriented to situation Psychiatric exam: PRESENT: flat affect, unusual affect Skin exam: PRESENT: dry, intact, warm. ABSENT: cyanosis Results Laboratory Results: 08/08/18 05:21 08/08/18 05:21 08/08/18 08/08/18 05:21 05:21 WBC 6.2 RBC 2.97 L Hgb 8.6 L Hct 24.5 L MCV 82 MCH 29.0 MCHC 35.2 RDW 15.7 H Plt Count 215 Seg Neutrophils % 75.8 Lymphocytes % 10.0 L Monocytes % 7.9 Eosinophils % 5.1 Basophils % 1.2 Absolute Neutrophils 4.7 Absolute Lymphocytes 0.6 Absolute Monocytes 0.5 Absolute Eosinophils 0.3 Absolute Basophils 0.1 Sodium 130.2 L Potassium 5.1 H Chloride 96 L Carbon Dioxide 24 Anion Gap 10 BUN 25 H Creatinine 2.09 H Est GFR ( Amer) 28 L Est GFR (Non-Af Amer) 23 L Glucose 66 L Calcium 9.2 Total Bilirubin 0.5 AST 14 ALT 18 Alkaline Phosphatase 83 Total Protein 5.3 L Albumin 2.7 L 08/06/18 08/06/18 08/07/18 11:54 19:22 02:13 Troponin I 0.081 0.076 0.059 Impressions: Head MRI 08/05/18 00:00 IMPRESSION: Recurrent acute, nonhemorrhagic lacunar infarct right angeli. EVIDENCE OF ACUTE STROKE: YES. RIGHT VERTEBROBASILAR. Head CT 08/05/18 05:19 IMPRESSION: No acute intracranial abnormality TECHNICAL DOCUMENTATION: Quality ID # 436: Final reports with documentation of one or more dose reduction techniques (e.g., Automated exposure control, adjustment of the mA and/or kV according to patient size, use of iterative reconstruction technique) 2010 [employer]- All Rights Reserved Hip X-Ray 08/05/18 05:20 IMPRESSION: Fracture of the left femoral neck. Assessment & Plan - Diagnosis (1) CKD (chronic kidney disease) stage 4, GFR 15-29 ml/min Is this a current diagnosis for this admission?: No Plan: currently at baseline, due to prior uncontrolled HTN. (2) Anemia Is this a current diagnosis for this admission?: Yes Plan: will look to get some labs and if all labs are normal then will discuss procrit with her. (3) Acute CVA (cerebrovascular accident) Is this a current diagnosis for this admission?: Yes Plan: per hospitalist (4) Hyponatremia Is this a current diagnosis for this admission?: Yes Plan: continue on fluid restriction and I agree of starting NS. Does have prior history of chronic hyponatremia that is usually in the 132 to 134 range. According to the labs collected it looks to be due to SIADH or recent use of HCTZ. Adrenal insufficiency can be ruled out due current elevation in bp. (5) Closed left hip fracture Qualifiers: Encounter type: initial encounter Qualified Code(s): S72.002A - Fracture of unspecified part of neck of left femur, initial encounter for closed fracture Is this a current diagnosis for this admission?: Yes Plan: per hospitalist and ortho (6) Hypertension Is this a current diagnosis for this admission?: Yes Plan: looks to be currently controlled.
[2018-08-08] MEDS ORDERED: NORMAL SALINE 1000 ML 1,000 ML IV PRN (15:27)
--- NOTE | 2018-08-08 19:37 | PDOC TRANSFER SUMMARY ---
General Admission Date/PCP: 08/05/18 09:14 HUSAM SCOTT PA-C Resuscitation Status: Full Code - Transfer Diagnosis (1) Acute CVA (cerebrovascular accident) Is this a current diagnosis for this admission?: Yes (2) Closed left hip fracture Is this a current diagnosis for this admission?: Yes (3) Hyponatremia Is this a current diagnosis for this admission?: Yes (4) Hypertension Is this a current diagnosis for this admission?: Yes (5) CKD (chronic kidney disease) stage 4, GFR 15-29 ml/min Is this a current diagnosis for this admission?: No (6) Elevated troponin Is this a current diagnosis for this admission?: Yes (7) Anemia Is this a current diagnosis for this admission?: Yes - Transfer Medications Home Medications: Atorvastatin Calcium [Lipitor 10 mg Tablet] 10 mg PO QHS 08/05/18 Bupropion HCl [Wellbutrin 75 mg Tablet] 75 mg PO DAILY 08/05/18 Cyanocobalamin (Vitamin B-12) [Vitamin B-12 1000 mcg Tablet] 1,000 mcg PO DAILY 08/05/18 Fluoxetine HCl [Prozac 20 mg Capsule] 20 mg PO DAILY 08/05/18 Folic Acid [Folvite 1 mg Tablet] 1 mg PO DAILY 08/05/18 Gabapentin [Neurontin 100 mg Capsule] 100 mg PO BID 08/05/18 Magnesium Oxide [Mag-Ox 400 mg Tablet] 400 mg PO DAILY 08/05/18 Melatonin [Melatonin 3 mg Tablet] 3 mg PO QHS 08/05/18 Milton-3 Fatty Acids/Fish Oil [Fish Oil 1,000 mg Capsule] 1,000 mg PO DAILY 08/05 Ropinirole HCl [Requip 0.25 mg Tablet] 0.25 mg PO QHS 08/05/18 Vitamin B Complex [Vitamin B-100 Complex] 1 tab PO DAILY 08/05/18 Transfer Medications: Current Medications Acetaminophen (Tylenol 325 Mg Tablet) 650 mg PO Q4HP PRN PRN Reason: PAIN Stop: 09/04/18 21:05 Last Admin: 08/07/18 10:22 Dose: 650 mg Amlodipine Besylate (Norvasc 10 Mg Tablet) 10 mg PO DAILY ROSI Stop: 09/07/18 09:59 Last Admin: 08/08/18 09:47 Dose: 10 mg Aspirin (Aspirin 81 Mg Chewable Tablet) 81 mg PO DAILY ROSI Stop: 09/08/18 09:59 Atorvastatin Calcium (Lipitor 40 Mg Tablet) 40 mg PO QHS [facility] Stop: 09/05/18 21:59 Last Admin: 08/07/18 22:24 Dose: 40 mg Carvedilol (Coreg 6.25 Mg Tablet) 6.25 mg PO Q12 [facility] Stop: 09/05/18 21:59 Last Admin: 08/08/18 09:45 Dose: 6.25 mg Heparin Sodium (Porcine) (Heparin Inj 5,000 Units/Ml 1 Ml Syringe) 5,000 unit SUBCUT Q12 [facility] Stop: 09/04/18 21:59 Last Admin: 08/08/18 09:46 Dose: 5,000 unit Hydralazine HCl (Apresoline Inj/Pf 20 Mg/1 Ml Sdv) 10 mg IV Q6HP PRN PRN Reason: SBP>180 Stop: 09/05/18 03:29 Last Admin: 08/06/18 03:46 Dose: 10 mg Sodium Chloride (Nacl 0.9% 1000 Ml Iv Soln) 1,000 mls @ 60 mls/hr IV CONTINUOUS PRN PRN Reason: THIS MED IS NOT "PRN" Stop: 09/07/18 15:26 Lorazepam (Ativan Inj 2 Mg/1 Ml Vial) 1 mg IV NOW PRN PRN Reason: ANXIETY Stop: 08/12/18 11:51 Last Admin: 08/05/18 12:14 Dose: 1 mg Morphine Sulfate (Morphine 10 Mg/Ml Inj) 3 mg IV Q4HP PRN PRN Reason: FOR PAIN Stop: 08/12/18 11:46 Last Admin: 08/08/18 13:10 Dose: 3 mg Ondansetron HCl (Zofran Inj/Pf 4 Mg/2 Ml Sdv) 4 mg IV Q4HP PRN PRN Reason: NAUSEA Stop: 09/06/18 14:48 Last Admin: 08/07/18 15:11 Dose: 4 mg Sodium Chloride (Saline Flush 2.5 Ml Monoject Prefil Syrin) 2.5 ml IV Q8 [facility] Stop: 09/04/18 13:59 Last Admin: 08/08/18 13:50 Dose: Not Given - Allergies Allergies/Adverse Reactions: ibuprofen [Ibuprofen] Allergy (Mild, Verified 07/12/18 00:41) Hospital Course Hospital Course: 72 year-old female past medical history of hypertension, dyslipidemia, hyponatremia, 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 Patient was brought to ED after mechanical fall and was found to have a left hip fracture. On admission she had a stated that she was feeling weak the night before on the left leg she did not make too much of it went to sleep. Around 3 AM she woke up to go to the restroom still feeling weak on the left side and fell on the way to the bathroom she denies any head trauma or loss of consciousness. Initial CT on admission was negative for any acute abnormalities but MRI on 11/2017 showed recurrent acute, nonhemorrhagic lacunar infarct in the right angeli. Medical records obtained 08/07/2018. Patient had a pontine bleed on 07/12/2018 and was admitted [facility] and was discharged to rehab for two weeks. She went home a week ago. Review of records showed that patient had CTA head which showed 50% stenosis of the left vertebral artery, 2D Echo was done which showed a 60-65% ejection fraction, no shunt, upper septal hypertrophy because consistent with sigmoid septum. Hemoglobin A1c was 5.2. I was able to talk to Dr. Yoon the neurologist [facility] and asked him about starting antiplatelet. He stated patient could be safely started on aspirin 81 mg daily. Yesterday I was able to talk to Dr. Vasyl Jack from Ortho and Dr. Majano from anesthesiology for reevaluating the patient for possible surgery. I got a call from Dr. Jack today that he had a conversation with Dr. Majano from anesthesia and patient is still deemed too high risk for any intervention. Dr. Sandoval suggested that patient could be transferred to another facility where he could be evaluated for possible surgery. I called [facility] possible transfer of the patient. They asked me to push over her imaging so it could be evaluated by the orthopedic department. I had a call back and they stated there scheduled if full until next week. They also said that they called their sister hospital where she could be possibly transferred but unfortunately they were also not able to accept the patient due to their capacity. They suggested that we should try to transfer the patient to another facility. Patient is feeling much better today alert oriented x3. I had a conversation with her and she was very pleasant and cooperative with a physical examination. I have updated her about her high risk surgery and the fact that the bed been trying to transfer her. She understands the situation. She had a good sleep overnight and her pain has been controlled with Tylenol. Physical Exam Vital Signs: Temp Pulse Resp BP Pulse Ox 97.6 F 66 10 L 141/64 H 97 08/08/18 15:23 08/08/18 17:30 08/08/18 15:23 08/08/18 15:23 08/08/18 15:23 Intake & Output 08/07/18 08/08/18 08/09/18 06:59 06:59 06:59 Intake Total 1294 874 600 Output Total 700 650 850 Balance 594 224 -250 Weight 68 kg 65.4 kg General appearance: PRESENT: no acute distress, well-developed, well-nourished Head exam: PRESENT: normocephalic Eye exam: PRESENT: conjunctiva pink, EOMI, PERRLA. ABSENT: scleral icterus Neck exam: ABSENT: carotid bruit, JVD, lymphadenopathy, thyromegaly Respiratory exam: PRESENT: clear to auscultation deepak. ABSENT: rales, rhonchi, wheezes Cardiovascular exam: PRESENT: RRR. ABSENT: diastolic murmur, rubs, systolic murmur Pulses: PRESENT: normal dorsalis pedis pul GI/Abdominal exam: PRESENT: normal bowel sounds, soft. ABSENT: distended, guarding, mass, organolmegaly, rebound, tenderness Extremities exam: PRESENT: full ROM. ABSENT: calf tenderness, clubbing, pedal edema Musculoskeletal exam: PRESENT: tenderness, other - Left lower extremity looks shorter from the right wound mildly externally rotated. And is able to flex her hip however it causes her pain. There is tenderness palpation over the groin. Neurological exam: PRESENT: alert, awake, oriented to person, oriented to place , oriented to time, oriented to situation, CN II-XII grossly intact. ABSENT: motor sensory deficit Psychiatric exam: PRESENT: appropriate affect, normal mood. ABSENT: homicidal ideation, suicidal ideation Results Laboratory Results: 08/08/18 05:21 08/08/18 05:21 08/08/18 08/08/18 05:21 05:21 WBC 6.2 RBC 2.97 L Hgb 8.6 L Hct 24.5 L MCV 82 MCH 29.0 MCHC 35.2 RDW 15.7 H Plt Count 215 Seg Neutrophils % 75.8 Lymphocytes % 10.0 L Monocytes % 7.9 Eosinophils % 5.1 Basophils % 1.2 Absolute Neutrophils 4.7 Absolute Lymphocytes 0.6 Absolute Monocytes 0.5 Absolute Eosinophils 0.3 Absolute Basophils 0.1 Sodium 130.2 L Potassium 5.1 H Chloride 96 L Carbon Dioxide 24 Anion Gap 10 BUN 25 H Creatinine 2.09 H Est GFR ( Amer) 28 L Est GFR (Non-Af Amer) 23 L Glucose 66 L Calcium 9.2 Total Bilirubin 0.5 AST 14 ALT 18 Alkaline Phosphatase 83 Total Protein 5.3 L Albumin 2.7 L 08/06/18 08/06/18 08/07/18 11:54 19:22 02:13 Troponin I 0.081 0.076 0.059 Impressions: Head MRI 08/05/18 00:00 IMPRESSION: Recurrent acute, nonhemorrhagic lacunar infarct right angeli. EVIDENCE OF ACUTE STROKE: YES. RIGHT VERTEBROBASILAR. Head CT 08/05/18 05:19 IMPRESSION: No acute intracranial abnormality TECHNICAL DOCUMENTATION: Quality ID # [id number]: Final reports with documentation of one or more dose reduction techniques (e.g., Automated exposure control, adjustment of the mA and/or kV according to patient size, use of iterative reconstruction technique) 2010 [employer]- All Rights Reserved Hip X-Ray 08/05/18 05:20 IMPRESSION: Fracture of the left femoral neck.
[2018-08-08 19:46] VITALS: BP 197/80
[2018-08-08] MEDS: HYDRALAZINE HCL INJ/PF 20 MG/1 ML SDV IV PRN (19:52)
[2018-08-09] MEDS ORDERED: ASPIRIN 81 MG TABLET, CHEWABLE PO SCH (10:00)
== END 2018-08-08 21:12 | disposition short-term general hospital (02) | DRG 64 ==
LOC: ER 04:47 → EH 09:14 → UNDOADMIN 09:14 → 3W 15:40
PROVIDERS: ADMIT Emergency Medicine; ATTEND Emergency Medicine
DX: I63.81 Other cerebral infarction due to occlusion or stenosis of small artery (principal); S72.002A Fracture of unspecified part of neck of left femur, initial encounter for closed fracture; E87.1 Hypo-osmolality and hyponatremia; N18.4 Chronic kidney disease, stage 4 (severe); G81.94 Hemiplegia, unspecified affecting left nondominant side; W01.0XXA Fall on same level from slipping, tripping and stumbling without subsequent striking against object, initial encounter; I12.9 Hypertensive chronic kidney disease with stage 1 through stage 4 chronic kidney disease, or unspecified chronic kidney disease; D63.1 Anemia in chronic kidney disease; E78.00 Pure hypercholesterolemia, unspecified; E11.22 Type 2 diabetes mellitus with diabetic chronic kidney disease; I25.2 Old myocardial infarction; Z88.6 Allergy status to analgesic agent; Z92.3 Personal history of irradiation; Z85.22 Personal history of malignant neoplasm of nasal cavities, middle ear, and accessory sinuses; Z60.2 Problems related to living alone; Z82.49 Family history of ischemic heart disease and other diseases of the circulatory system
CPT/HCPCS: 36415; 51702; 70450; 70551; 80048; 80053; 81001; 82550; 82553; 82962; 83735; 83930; 83935; 84300; 84484; 85025; 93005; 93010; 96361; 96374; 96375; 99285; G8978-GO; G8978-GP; G8979-GO; G8979-GP; G8996-GN; G8997-GN; J0360; J1644; J2060; J2270; J2405; J7030

== ENCOUNTER 2018-09-30 15:41 | Emergency (ER) | payer MEDICARE ==
--- NOTE | 2018-09-30 16:04 | ER Document Report ---
ED Cardiac - General Stated Complaint: CHEST PAIN Time Seen by Provider: 09/30/18 16:02 Mode of Arrival: Stretcher Information source: Patient TRAVEL OUTSIDE OF THE [place] IN LAST 30 DAYS: No - HPI Patient complains to provider of: Chest pain Was the onset of pain: Gradual Is the pain a: New problem Chest pain location: Substernal Quality of pain: Heaviness, Pressure Severity now: Mild Severity at worst: Moderate Pain level currently: 1 Chest pain precipitating factors: Physical Exertion Cardiac risk factors: Hypertension Positive cardiac history: No Exacerbated by: Activity Relieved by: Nothing Similar symptoms previously: No Recently seen / treated by doctor: Yes Notes: Patient is a 72-year-old female with complicated medical history including hypertension, stage IV CKD, history of CVA with a recent hemorrhagic stroke on July 122017, nasopharyngeal cancer status post radiation and chemotherapy in 2012, presents to the emergency room today for midsternal chest pain which is pressure-like in nature and started sometime yesterday evening, worsens with activity specifically when patient is exerting herself, she denies any shortness of breath, pain is been intermittent, there is no nausea, no history of coronary artery disease as far as patient knows - Related Data Allergies/Adverse Reactions: ibuprofen [Ibuprofen] Allergy (Mild, Verified 07/12/18 00:41) Past Medical History - General Information source: Patient - Social History Smoking Status: Current Some Day Smoker Family History: Reviewed & Not Pertinent - Past Medical History Cardiac Medical History: Reports: Hx Heart Attack, Hx Hypercholesterolemia, Hx Hypertension Endocrine Medical History: Reports: Hx Diabetes Mellitus Type 2 Renal/ Medical History: Denies: Hx Peritoneal Dialysis Psychiatric Medical History: Denies: Hx Depression - Immunizations Hx Diphtheria, Pertussis, Tetanus Vaccination: Yes Review of Systems - Review of Systems Constitutional: No symptoms reported EENT: No symptoms reported Cardiovascular: Chest pain Respiratory: No symptoms reported Gastrointestinal: No symptoms reported Genitourinary: No symptoms reported Female Genitourinary: No symptoms reported Musculoskeletal: No symptoms reported Skin: No symptoms reported Hematologic/Lymphatic: No symptoms reported Neurological/Psychological: No symptoms reported -: Yes All other systems reviewed and negative Physical Exam - Vital signs Vitals: Pulse Ox 95 09/30/18 15:49 Interpretation: Normal - General General appearance: Alert In distress: None - HEENT Head: Normocephalic, Atraumatic Eyes: Normal Conjunctiva: Normal Pupils: PERRL - Respiratory Respiratory status: No respiratory distress Chest status: Nontender Breath sounds: Normal Chest palpation: Normal - Cardiovascular Rhythm: Regular Heart sounds: Normal auscultation Murmur: No - Abdominal Inspection: Normal Distension: No distension Bowel sounds: Normal Tenderness: Nontender Organomegaly: No organomegaly - Back Back: Normal, Nontender - Extremities General upper extremity: Normal inspection, Nontender, Normal color, Normal ROM , Normal temperature General lower extremity: Nontender, Edema - Trace edema in bilateral lower extremities, Normal color, Normal temperature. No: Meka's sign - Neurological Neuro grossly intact: Yes Cognition: Normal Orientation: AAOx4 [place] Coma Scale Eye Opening: Spontaneous [place] Coma Scale Verbal: Oriented [place] Coma Scale Motor: Obeys Commands Yury Coma Scale Total: 15 Speech: Normal Motor strength normal: LUE, RUE, LLE, RLE Sensory: Normal - Psychological Associated symptoms: Normal affect, Normal mood - Skin Skin Temperature: Warm Skin Moisture: Dry Skin Color: Pale Course - Re-evaluation Re-evalutation: 09/30/18 17:10 A call was placed to [facility], patient's EKG meets Wellens criteria for acute ischemic changes, in comparison to EKG on 08/05/2018 which was normal patient now has deep ST depressions in the precordial leads with T wave inversions Received a call back from Dr. Damico, furniture duster, who accepts patient for transfer, however given her recent hemorrhagic stroke he will have neurosurgery on hand to evaluate assist in recommendations regarding whether or not patient can receive IV heparin which is required in the Design Analyst - Vital Signs Vital signs: Temp Pulse Resp BP Pulse Ox 98 F 20 170/94 H 92 09/30/18 16:46 09/30/18 16:46 09/30/18 16:46 09/30/18 16:46 - Laboratory Result Diagrams: 09/30/18 16:20 09/30/18 16:20 Laboratory results interpreted by me: 09/30/18 09/30/18 09/30/18 16:20 16:20 16:20 WBC 10.7 H RBC 3.03 L Hgb 8.8 L Hct 25.9 L RDW 16.5 H Seg Neutrophils % 79.3 H Lymphocytes % 12.1 L Absolute Neutrophils 8.5 H Creatinine 1.69 H Est GFR ( Amer) 36 L Est GFR (Non-Af Amer) 30 L Creatine Kinase < 20 L NT-Pro-B Natriuret Pep 41035 H Total Protein 5.9 L Albumin 2.7 L - Diagnostic Test Radiology reviewed: Image reviewed, Reports reviewed - EKG Interpretation by Me Additional EKG results interpreted by me: 09/30/18 17:[address] depressions with inverted T waves in precordial leads, in comparison to EKG on 08/05/2017 this is new, concern for acute ischemic changes consistent with Wellens criteria, code STEMI activated Critical Care Note - Critical Care Note Total time excluding time spent on procedures (mins): 45 Comments: EKG consistent with acute coronary syndrome Discharge - Discharge Clinical Impression: STEMI (ST elevation myocardial infarction) Condition: Stable Disposition: [facility]ESS [facility]ITAL Referrals: NICOLASA DENTON MD [Primary Care Provider] - Follow up as needed
[2018-09-30] MEDS ORDERED: ASPIRIN 81 MG TABLET, CHEWABLE PO ONE (16:05)
[2018-09-30 16:28] LABS: ABSOLUTE BASOPHILS # (AUTO) 0.1 10^3/uL (0.0-0.2); ABSOLUTE EOSINOPHILS # (AUTO) 0.2 10^3/uL (0.0-0.6); ABSOLUTE LYMPHOCYTES (AUTO) 1.3 10^3/uL (0.5-4.7); ABSOLUTE MONOCYTES (AUTO) 0.6 10^3/uL (0.1-1.4); ABSOLUTE NEUT (AUTO) 8.5 10^3/uL (1.7-8.2); BASOPHILS % (AUTO) 1.1 % (0-2); HEMATOCRIT 25.9 % (36.0-47.0); HEMOGLOBIN 8.8 g/dL (12.0-15.5); LYMPHOCYTES % (AUTO) 12.1 % (13-45); MEAN CORPUSCULAR HEMOGLOBIN 28.9 pg (27.0-33.4); MEAN CORPUSCULAR HGB CONC 33.8 g/dL (32.0-36.0); MEAN CORPUSCULAR VOLUME 86 fl (80-97); MONOCYTES % (AUTO) 5.5 % (3-13); PLATELET COUNT 368 10^3/uL (150-450); RED BLOOD COUNT 3.03 10^6/uL (3.72-5.28); RED CELL DISTRIBUTION WIDTH 16.5 % (11.5-14.0); SEGMENTED NEUTROPHILS % (AUTO) 79.3 % (42-78); TOTAL CELLS COUNTED % (AUTO) 100 %; WHITE BLOOD COUNT 10.7 10^3/uL (4.0-10.5)
--- NOTE | 2018-09-30 16:45 | RADIOLOGY REPORT (SQ) ---
EXAM DESCRIPTION: CHEST SINGLE VIEW COMPLETED DATE/TIME: 09/30/2018 4:16 pm REASON FOR STUDY: bed 15 cp COMPARISON: 04/16/2013 EXAM PARAMETERS: NUMBER OF VIEWS: One view. TECHNIQUE: Single frontal radiographic view of the chest acquired. RADIATION DOSE: NA LIMITATIONS: None. FINDINGS: LUNGS AND PLEURA: Slight patchy density suggested in the left lower lung, may be on the b asis of infiltrate. The right lung is clear. No pneumothorax or pleural effusion. MEDIASTINUM AND HILAR STRUCTURES: No masses. Contour normal. HEART AND VASCULAR STRUCTURES: Heart normal in size. Normal vasculature. BONES: No acute findings. HARDWARE: None in the chest. OTHER: No other significant finding. IMPRESSION: 1. Slight patchy parenchymal density suggested in the left lower lung, may be on the ba sis of infiltrate. TECHNICAL DOCUMENTATION: JOB ID: [id number] [employer]- All Rights Reserved Reading location - IP/workstation name: [email or web address]
[2018-09-30 16:46] LABS: ALANINE AMINOTRANSFERASE 10 U/L (9-52); ALBUMIN 2.7 g/dL (3.5-5.0); ALKALINE PHOSPHATASE 88 U/L (38-126); ANION GAP 9 (5-19); ASPARTATE AMINO TRANSFERASE 16 U/L (14-36); BILIRUBIN,DIRECT 0.3 mg/dL (0.0-0.4); BILIRUBIN,TOTAL 0.4 mg/dL (0.2-1.3); BLOOD UREA NITROGEN 18 mg/dL (7-20); CALCIUM 9.6 mg/dL (8.4-10.2); CARBON DIOXIDE 29 mmol/L (22-30); CHLORIDE 101 mmol/L (98-107); CREATINE KINASE < 20 U/L (30-135); GLUCOSE 87 mg/dL (75-110); POTASSIUM 4.4 mmol/L (3.6-5.0); SODIUM 138.6 mmol/L (137-145); TOTAL PROTEIN 5.9 g/dL (6.3-8.2)
[2018-09-30 16:59] LABS: CREATINE KINASE MB 1.18 ng/mL (<4.55)
[2018-09-30 17:18] LABS: TROPONIN I 0.038 ng/mL
[2018-09-30 17:21] VITALS: BP 170/94
--- NOTE | 2018-09-30 19:43 | EKG REPORT ---
SEVERITY:- ABNORMAL ECG - SINUS RHYTHM REPOL ABNRM, PROBABLE ISCHEMIA, DIFFUSE LEADS PROLONGED QT INTERVAL : Confirmed by: Brannon Cook MD 30-Sep-2018 19:43:07
== END 2018-09-30 17:10 | disposition short-term general hospital (02) ==
LOC: ER 15:41
DX: I21.3 ST elevation (STEMI) myocardial infarction of unspecified site (principal); R07.89 Other chest pain; I10 Essential (primary) hypertension; I25.2 Old myocardial infarction; E11.9 Type 2 diabetes mellitus without complications; F17.200 Nicotine dependence, unspecified, uncomplicated; Z88.6 Allergy status to analgesic agent
CPT/HCPCS: 36415; 71045; 80053; 82550; 82553; 83880; 84484; 85025; 93005; 93010; 99291